=== PATIENT | male | born 1965 | race Caucasian/White ===

== ENCOUNTER 2023-07-10 11:53 | Emergency (ER) | payer OTHER, SELFPAY ==
--- NOTE | ~2023-07-10 | CT_ITS ---
EXAMINATION: CT abdomen pelvis wo con DATE: 07/10/2023 13:27 INDICATION: Abdominal pain. Right flank pain. TECHNIQUE: Computed tomography (CT) of the abdomen and pelvis was performed without intravenous contr ast. Automated exposure control and iterative reconstruction technique were employed. The dose-length product was 763.03 mGy-cm. COMPARISON: None FINDINGS: Minimal bibasilar atelectasis. A couple small fat-containing hernias at the posterior medial aspect o f the left hemidiaphragm. Heart size is normal. Atherosclerotic coronary artery calcific lesion. No p ericardial or pleural effusion. Liver, gallbladder, spleen, pancreas and bilateral adrenal glands are normal. Bilateral nephrolithiasis including a 4 mm obstructing stone at the right ureterovesicular j unction with mild right hydroureteronephrosis. There are left and additional stones measuring up to 3 mm in the right kidney and 5 stones in left kidney the largest measuring 7 mm in maximal diameter at a lower pole calyx. No left-sided ureteral stones or hydronephrosis. Partially decompressed bladder is unremarkable. Prostatomegaly measuring 4.7 x 3.5 cm. Small fat-containing left and umbilical herni as. There is moderate colonic diverticulosis with a sigmoid predominance. There is no adjacent inflam matory change to suggest diverticulitis. Small bowel and appendix are normal. No free intraperitonea l gas or fluid. No pathologically enlarged abdominal or pelvic lymphadenopathy. Mild lumbar and moder ate mid to lower thoracic spondylosis. There is minimal to mild chronic appearing anterior wedging at multiple vertebral bodies in mid to lower thoracic spine. IMPRESSION: 1. Bilateral nephrolithiasis with obstructing 4 mm stone at the right ureterovesicular junction with mild right hydronephrosis. 2. Moderate sigmoid predominant diverticulosis. 3. Small fat-containing umbilical and left inguinal hernias. Reviewed, dictated and finalized at location A. IMPRESSION: 1. Bilateral nephrolithiasis with obstructing 4 mm stone at the right ureterove sicular junction with mild right hydronephrosis. 2. Moderate sigmoid predominant diverticulosis. 3. Small fat-containing umbilical and left inguinal hernias.
[2023-07-10 11:56] VITALS: BP 149/78; PULSE 87; RESP 16; TEMP 36.5; O2SAT 97
[2023-07-10 12:16] LABS: Basophils Absolute Auto 0.1 K/mm3 (0.0-0.1); Basophils Percent Auto 0.6 % (0.2-1.2); Eosinophils Percent Auto 0.5 % (0-4.4); Hematocrit 45.2 % (42.0-52.0); Immature Granulocyte Absolute 0.04 K/mm3 (0.00-0.031); Immature Granulocyte Percent A 0.5 % (0-0.5); Lymphocytes Absolute Auto 1.31 K/mm3 (0.9-3.2); Lymphocytes Percent Auto 14.9 % (18.3-44.2); Mean Corpuscular HGB Conc 33.2 g/dl (32-36); Mean Corpuscular Volume 90.4 fl (80-100); Mean Platelet Volume 8.6 fl (7.4-10.4); Monocytes Absolute Auto 0.9 K/mm3 (0.1-0.6); Monocytes Percent Auto 10.7 % (2.6-8.5); Neutrophils Absolute Auto 6.4 K/mm3 (1.3-6.7); Neutrophils Percent Auto 72.8 % (45.5-73.1); Platelet Count Result 253 k/mm3 (150-375); Red Cell Distribution Width 12.3 % (11.5-14.5); White Blood Count 8.8 K/mm3 (4.5-10.0)
[2023-07-10 12:19] LABS: Appearance Urine Clear (Clear); Bacteria Urine None Seen /hpf; Bilirubin Urine Negative (Negative); Blood Urine Trace (Negative); Color Urine Yellow (Yellow); Glucose Urine UA Negative (Negative); Ketones Urine Negative (Negative); Leukocyte Esterase Ur 1+ LEU/UL (Negative); Nitrate Urine Negative (Negative); Non Pathogenic Casts 0-2; Protein Urine Trace mg/dL (Negative); RBC Urine 0-2 /hpf (0-2); Specific Grav Ur 1.026 (1.001-1.035); Squamous Epithelial Cell Urine None seen /hpf (Few); Urobilinogen Urine 0.2 mg/dL (<2.0); WBC Urine 21-50 /hpf; pH Urine 5.5 (5.0-9.0)
[2023-07-10 12:20] LABS: Add Urine Microscopic? YES
[2023-07-10 12:28] LABS: Alanine Aminotransferase 39 U/L (6-50); Albumin Level 4.2 g/dL (3.5-5.1); Alkaline Phosphatase 68 U/L (38-126); Anion Gap 5 mmol/L (8-16); Aspartate Amino Transferase 199 U/L (17-59); Bilirubin,Total 0.7 mg/dL (0.2-1.3); Blood Urea Nitrogen 25 mg/dL (9-20); Carbon Dioxide 27 mmol/L (22-30); Chloride 105 mmol/L (98-107); Estimated CRCL calculation 29 ml/min; Estimated Glomerular Filt Rate 29; Glucose 93 mg/dL (65-110); Potassium 4.4 mmol/L (3.4-5.0); Sodium 137 mmol/L (137-145)
--- NOTE | 2023-07-10 12:56 | ED.GENADULT ---
HPI - General Adult General Chief complaint: Urogenital-Male Stated complaint: right flank pain/umbilical pain Time Seen by Provider: 07/10/23 15:32 History of Present Illness HPI narrative: Eliel Pat is a 57 y/o male who presents with reports of having increased mid abdominal pain where his umbilical hernia is for about 2 weeks and his abdomen feels to be pretruding. He also reports that he has right flank pain that moves around to his right lower abdomen and feels more pressure when he urinates. Denies fevers/ chills/ Related Data Allergies Allergy/AdvReac Type Severity Reaction Status Date / Time No Known Allergies Allergy Verified 07/10/23 15:34 [facility] Past Medical History Medical History (Updated 07/11/23 @ 00:01 by Randy Marino) No significant past medical history Surgical History Surgical History (Updated 07/10/23 @ 20:19 by Keyur Husain MD) No significant past surgical history Social History Social History (Updated 07/10/23 @ 20:20 by Keyur Husain MD) Smoking status: Never smoker Alcohol intake: current Substance use: never Course Vital Signs Vital signs: Vital Signs Temperature 36.5 C 07/10/23 11:56 Pulse Rate 87 07/10/23 11:56 Respiratory Rate 16 07/10/23 11:56 Blood Pressure 149/78 H 07/10/23 11:56 Pulse Oximetry 97 07/10/23 11:56 Oxygen Delivery Room Air 07/10/23 11:56 Temperature 36.5 C 07/10/23 11:56 Pulse Rate 73 07/10/23 18:54 Respiratory Rate 18 07/10/23 18:54 Blood Pressure 141/98 H 07/10/23 18:54 Pulse Oximetry 97 07/10/23 18:54 Oxygen Delivery Room Air 07/10/23 15:17 Medical Decision Making Vital Signs Vital Signs: Vital Signs Temperature 36.5 C 07/10/23 11:56 Pulse Rate 87 07/10/23 11:56 Respiratory Rate 16 07/10/23 11:56 Blood Pressure 149/78 H 07/10/23 11:56 Pulse Oximetry 97 07/10/23 11:56 Oxygen Delivery Room Air 07/10/23 11:56 Temperature 36.5 C 07/10/23 11:56 Pulse Rate 73 07/10/23 18:54 Respiratory Rate 18 07/10/23 18:54 Blood Pressure 141/98 H 07/10/23 18:54 Pulse Oximetry 97 07/10/23 18:54 Oxygen Delivery Room Air 07/10/23 15:17 Lab Data 07/10/23 12:09 07/10/23 18:06 Labs: Lab Results 07/10/23 07/10/23 Range/Units 12:09 18:06 WBC 8.8 (4.5-10.0) K/mm3 RBC 5.00 (4.6-6.20) M/mm3 Hgb 15.0 (14.0-18.0) g/dL Hct 45.2 (42.0-52.0) % MCV 90.4 (80-100) fl MCH 30.0 (26-34) pg MCHC 33.2 (32-36) g/dl RDW 12.3 (11.5-14.5) % Plt Count 253 (150-375) k/mm3 MPV 8.6 (7.4-10.4) fl Immature Gran % (Auto) 0.5 (0-0.5) % Neut % (Auto) 72.8 (45.5-73.1) % Lymph % (Auto) 14.9 L (18.3-44.2) % George % (Auto) 10.7 H (2.6-8.5) % Eos % (Auto) 0.5 (0-4.4) % Baso % (Auto) 0.6 (0.2-1.2) % Lymph # (Auto) 1.31 (0.9-3.2) K/mm3 George # (Auto) 0.9 H (0.1-0.6) K/mm3 Eos # (Auto) 0.0 (0-0.3) K/mm3 Baso # (Auto) 0.1 (0.0-0.1) K/mm3 Abs Immat Gran (auto) 0.04 H (0.00-0.031) K/mm3 Absolute Neuts (auto) 6.4 (1.3-6.7) K/mm3 Absolute Nucleated RBC 0.0 (0.0-0.012) K/mm3 Nucleated RBC % 0.0 (0.0-0.2) % Sodium 137 137 (137-145) mmol/L Potassium 4.4 4.3 (3.4-5.0) mmol/L Chloride 105 108 H (98-107) mmol/L Carbon Dioxide 27 26 (22-30) mmol/L Anion Gap 5 L 3 L (8-16) mmol/L BUN 25 H 22 H (9-20) mg/dL Creatinine 2.30 H 2.20 H (0.7-1.3) mg/dL Estim Creat Clear Calc 29 30 ml/min Estimated GFR 29 L 31 L (59 - ) Glucose 93 84 (65-110) mg/dL Calcium 9.0 8.5 (8.4-10.2) mg/dL Total Bilirubin 0.7 (0.2-1.3) mg/dL AST 199 H (17-59) U/L ALT 39 (6-50) U/L Alkaline Phosphatase 68 (38-126) U/L Total Protein 8.0 (6.3-8.2) g/dL Albumin 4.2 (3.5-5.1) g/dL Urine Color Yellow (Yellow) Urine Appearance Clear (Clear) Urine pH 5.5 (5.0-9.0) Ur Specific [place] 1.026 (1.001-1.035) Urine Prote
[2023-07-10 15:17] VITALS: BP 134/84; PULSE 72; RESP 18; O2SAT 98
[2023-07-10] MEDS: SODIUM CHLORIDE 0.9% IV 1,000 ML 999 ML IV CONT (16:25)
[2023-07-10 18:23] LABS: Anion Gap 3 mmol/L (8-16); Blood Urea Nitrogen 22 mg/dL (9-20); Calcium 8.5 mg/dL (8.4-10.2); Carbon Dioxide 26 mmol/L (22-30); Chloride 108 mmol/L (98-107); Estimated CRCL calculation 30 ml/min; Estimated Glomerular Filt Rate 31; Glucose 84 mg/dL (65-110); Potassium 4.3 mmol/L (3.4-5.0); Sodium 137 mmol/L (137-145)
--- NOTE | 2023-07-10 18:42 | ED.MALEGU ---
HPI - Male Genitourinary General Chief complaint: Urogenital-Male <Keyur Husain MD - Last Filed: 07/10/23 20:27> Stated complaint: right flank pain/umbilical pain <Keyur Husain MD - Last Filed: 07/10/23 20:27> Time Seen by Provider: 07/10/23 15:32 <Keyur Husain MD - Last Filed: 07/10/23 20:27> History of Present Illness HPI Narrative: Eliel Pat is a 57 y/o male who presents with reports of having increased mid abdominal pain where his umbilical hernia is for about 2 weeks and his abdomen feels to be pretruding. He also reports that he has right flank pain that moves around to his right lower abdomen and feels more pressure when he urinates. Denies fevers/ chills/ <Keyur Husain MD - Last Filed: 07/10/23 20:27> Related Data Allergies/Adverse reactions: Allergies Allergy/AdvReac Type Severity Reaction Status Date / Time No Known Allergies Allergy Verified 07/10/23 15:34 <Keyur Husain MD - Last Filed: 07/10/23 20:27> Review of Systems Review of Systems: CONSTITUTIONAL: Denies fever, chills, or sweats. CARDIOVASCULAR: Denies chest pain, palpitations, or edema. RESPIRATORY: Denies cough or dyspnea. GASTROINTESTINAL: Right flank pain Denies abdominal pain, nausea, vomiting, or diarrhea. GENITOURINARY: Denies dysuria or hematuria. SKIN: Denies rash or itching. MUSCULOSKELETAL: Denies back pain, joint pain, or myalgia. NEUROLOGIC: Denies headache, numbness, dizziness, or weakness. PSYCHIATRIC: Denies anxiety or depression. <Keyur Husain MD - Last Filed: 07/10/23 20:27> PMFSH Past Medical History Medical History: Medical History (Updated 07/10/23 @ 20:19 by Keyur Husain MD) No significant past medical history <Keyur Husain MD - Last Filed: 07/10/23 20:27> Surgical History Surgical History: Surgical History (Updated 07/10/23 @ 20:19 by Keyur Husain MD) No significant past surgical history <Keyur Husain MD - Last Filed: 07/10/23 20:27> Social History Social History: Social History (Updated 07/10/23 @ 20:20 by Keyur Husain MD) Smoking status: Never smoker Alcohol intake: current Substance use: never <Keyur Husain MD - Last Filed: 07/10/23 20:27> Exam Narrative: GENERAL: Well-developed, well-nourished, and in no acute distress. HEAD: Normocephalic, atraumatic. EYES: PERRLA and EOMI. CHEST: Clear to auscultation.? No respiratory distress.? No wheezes rales or rhonchi HEART: Regular rate and rhythm.? No murmur heard.? Normal peripheral pulses. ABDOMEN: Soft, nontender, nondistended, normal active bowel sounds.? No CVA tenderness EXTREMITIES: Normal range of motion.? No edema. SKIN: No noted ecchymosis, induration or erythema of the groin.? Skin otherwise warm, dry, no rash. NEURO:? Alert and oriented x3. Moving all 4 limbs purposefully. PSYCH: Normal mood and affect. <Keyur Husain MD - Last Filed: 07/10/23 20:27> Course Course Emergency Course: 16:13 - Care assumed by me after MSE. The patient's creatinine is elevated at 2.3 with an unknown baseline, though the patient recalls previously being told he suffered kidney injury. CT demonstrates a 4mm stone at the UVJ with right side hydronephrosis. I discussed management options including admission with Urology evaluation and possible stenting vs IV hydration, repeat chemistries and reassessment. The patient elects the latter. 18:40 - Repeat creatinine not significantly changed (2.2). I had a shared decision making conversation with the patient. We discussed risks vs benefits of admission for IV fluids and Urology consultation vs oral hydration and close outpatient follow up. The patient prefers to follow up with his Urologist. Discussed return and emergency precautions including signs/symptoms of acute abdomen. The patient voiced understanding and is comfortable with the plan. All questions answered to his satisfact
[2023-07-10] MEDS: oxyCODONE/ACETAMINOPHEN (*CRX) 5-325 MG TABLET 1 TABLET PO (18:52)
[2023-07-10] MEDS: TAMSULOSIN HCL 0.4 MG CAPSULE PO (18:52)
[2023-07-10 18:54] VITALS: BP 141/98; PULSE 73; RESP 18; O2SAT 97
== END 2023-07-10 19:12 | disposition home or self-care (01) ==
PROVIDERS: Emergency Provider Preventive Medicine Aerospace Medicine
DX: N13.2 Hydronephrosis with renal and ureteral calculous obstruction (principal)
CPT/HCPCS: 36415; 74176; 80048; 80053; 81001; 85025; 87086; 87088; 96360; 99284; A9270; J7030

== ENCOUNTER 2024-06-13 07:00 | Outpatient (NON) | payer OTHER, SELFPAY | END 2024-06-13 07:01 | disposition home or self-care (01) | LOC: ANHLAB 06-14 10:08 | PROVIDERS: PCP Nurse Practitioner Family; Visit Provider Internal Medicine Gastroenterology | DX: D12.5 Benign neoplasm of sigmoid colon (principal); Z12.11 Encounter for screening for malignant neoplasm of colon | CPT/HCPCS: 88305 ==

== ENCOUNTER 2024-06-13 11:20 | Day surgery (SDC) | payer OTHER, SELFPAY ==
[2024-06-04 08:14] VITALS: BMI 30.8
--- NOTE | 2024-06-13 06:58 | P.PNAN_ITS ---
Anes - Initial Pre Proc Eval Procedure: Operation Date: 06/13/24 13:00 Proposed Procedures p Screening Colonoscopy - Sp Sanders MD Date/Time: 06/13/24 06:58 Surgeon: Sp Sanders MD Pre Op Diagnosis: Neoplasm Screening Patient Data Age: 58 Gender: M Height: 1.65 m Weight: 82 kg Allergies Allergy/AdvReac Type Severity Reaction Status Date / Time No Known Allergies Allergy Verified 06/13/24 12:13 Home Medications Medication Instructions Recorded Confirmed Type dextroamphetamine-amphetamine 20 20 mg PO BID #60 tabs 04/15/24 06/13/24 Rx mg tablet (Adderall) sertraline 50 mg tablet 50 mg PO DAILY #90 tabs 05/30/24 06/13/24 Rx lorazepam 0.5 mg tablet 0.5 mg PO DAILY PRN anxiety #30 05/31/24 06/13/24 Rx tabs atorvastatin 20 mg tablet 20 mg PO QHS #90 tabs 06/04/24 06/13/24 Rx hydroxyzine HCl 1 tab-cap PO DIRECTED 06/13/24 06/13/24 History Patient hx anesthesia problems: none Family hx anesthesia problems: none Results Review: All pre-operative results and documents have been reviewed as part of the pre- operative evaluation. [facility] Past Medical History Medical History (Updated 06/13/24 @ 06:59 by Feliberto Reyna DO) ADHD Anxiety Hyperlipidemia Surgical History Surgical History No significant past surgical history Family History Family History Father Coronary artery disease Social History Social History (Updated 12/12/23 @ 09:37 by Serenity Cleaning APRN) Smoking packs per day: 0.5 Smoking cigarettes per day: 10.0 Smoking status: Current every day smoker Tobacco type: cigarettes Alcohol intake: current Substance use: never Substance use type: does not use Living arrangements: with family Anes - Eval Final PreProcedure Day of Procedure 06/13/24 06:58 Patient weight: overweight Heart: regular rate and rhythm Lungs: clear to auscultation Airway: Mallampati scale class II Neurological: alert and oriented Last oral intake: >/= 8 hours ASA classification: II Emergent: no Anesthetic plan: proceed Anesthesia type and monitoring: general GIVS and standard monitoring Results Review: All pre-operative results and documents have been reviewed as part of the pre- operative evaluation. Informed Consent: The patient's anesthetic plan and its attendant risks and benefits were discussed with the patient/family/POA. Questions were solicited and answers provided to the satisfaction of the patient/family/POA.
[2024-06-13 12:18] VITALS: BP 133/87; PULSE 102; RESP 18; TEMP 36.1; O2SAT 97
[2024-06-13] MEDS: LACTATED RINGERS 1,000 ML 150 ML IV CONT (12:45)
--- NOTE | 2024-06-13 12:54 | PM.HPGS ---
History of Present Illness History of Present Illness Consent: Risks, benefits, and alternatives have been discussed and questions answered. Patient agrees to proceed with procedure. Chief complaint: Neoplasm Screening Narrative: Eliel Pat is a 58 year old male presents for screening colonoscopy. Patient's current S are normal. Patient denies abdominal pain. Has had no bleeding. Family history is noncontributory. Review of Systems Review of Systems: All systems reviewed & are unremarkable except as noted in HPI and below PMFSH Past Medical History Medical History (Updated 06/13/24 @ 06:59 by Feliberto Reyna, ) ADHD Anxiety Hyperlipidemia Surgical History Surgical History No significant past surgical history Family History Family History Father Coronary artery disease Social History Social History (Updated 12/12/23 @ 09:37 by Serenity Cleaning APRN) Smoking packs per day: 0.5 Smoking cigarettes per day: 10.0 Smoking status: Current every day smoker Tobacco type: cigarettes Alcohol intake: current Substance use: never Substance use type: does not use Living arrangements: with family Meds Home Medications and Allergies Home Medications Medication Instructions Recorded Confirmed Type dextroamphetamine-amphetamine 20 20 mg PO BID #60 tabs 04/15/24 06/13/24 Rx mg tablet (Adderall) sertraline 50 mg tablet 50 mg PO DAILY #90 tabs 05/30/24 06/13/24 Rx lorazepam 0.5 mg tablet 0.5 mg PO DAILY PRN anxiety #30 05/31/24 06/13/24 Rx tabs atorvastatin 20 mg tablet 20 mg PO QHS #90 tabs 06/04/24 06/13/24 Rx hydroxyzine HCl 1 tab-cap PO DIRECTED 06/13/24 06/13/24 History Allergies Allergy/AdvReac Type Severity Reaction Status Date / Time No Known Allergies Allergy Verified 06/13/24 12:13 Vital Signs Vital Signs - 24 hr 06/13/24 12:18 Temperature 97.0 F L Pulse Rate 102 H Respiratory Rate 18 Blood Pressure 133/87 Pulse Oximetry 97 Oxygen Delivery Room Air Exam Narrative: Physical exam reveals patient to be alert. Signs stable. HEENT exam is unremarkable. Patient is anicteric. Lungs are clear to auscultation and percussion. Heart is without murmur or extra sounds. Abdomen bowel sounds are present soft nontender with no organomegaly. Digital external rectal exam normal. Assessment and Plan Assessment and plan (1) Colon cancer screening: Code(s): Z12.11 - Encounter for screening for malignant neoplasm of colon Status: Acute Assessment and Plan: Patient presents today for screening colonoscopy. He appears to be at average risk for colon polyps. Further recommendations may be given after endoscopy.
[2024-06-13 13:25] VITALS: BP 99/70; PULSE 80; RESP 16; O2SAT 96
[2024-06-13 13:35] VITALS: BP 94/64; PULSE 81; RESP 18; O2SAT 96
[2024-06-13 13:45] VITALS: BP 106/70; PULSE 69; RESP 18; O2SAT 98
--- NOTE | 2024-06-13 14:39 | WPDANESPN ---
Anes - Prog Note Post-Op Date/Time: 06/13/24 14:39 Cardiovascular status: normal Respiratory status: normal Airway patency: baseline Mental status: baseline Post-Op hydration status: normal Vital Signs: Last Vital Signs Temp 36.1 C L 06/13/24 12:18 Pulse 69 06/13/24 13:45 Resp 18 06/13/24 13:45 BP 106/70 06/13/24 13:45 Pulse Ox 98 06/13/24 13:45 O2 Del Method Room Air 06/13/24 13:45 Pain Score (VAS): 0 I/O: Intake & Output 06/12/24 06/13/24 06/13/24 23:59 07:59 15:59 Intake Total 600 Balance 600 Post-procedural complaints: none Patient Feedback: Patient satisfied with anesthetic care. Other Findings: Patient vital signs back to baseline. Patient denies nausea and vomiting. Patient's pain under control. Patient OK for discharge.
== END 2024-06-13 13:55 | disposition home or self-care (01) ==
PROVIDERS: PCP Nurse Practitioner Family; Visit Provider Internal Medicine Gastroenterology
PROC: 0DJD8ZZ Inspection of Lower Intestinal Tract, Via Natural or Artificial Opening Endoscopic (ICD-10-PCS; CPT 45378; principal; 2024-06-13 13:00)
DX: Z12.11 Encounter for screening for malignant neoplasm of colon (principal); D12.5 Benign neoplasm of sigmoid colon; K57.30 Diverticulosis of large intestine without perforation or abscess without bleeding; K64.8 Other hemorrhoids
CPT/HCPCS: 45385

== ENCOUNTER 2024-12-19 09:13 | Outpatient (CLI) | payer OTHER, SELFPAY ==
--- OUTSIDE RECORDS SUMMARY | 2024-12-18 10:45 | XMS_ITS ---
Author Organization [facility] Address [address] [place] [address] Phone Care Team Providers Care Hygiene Teacher Name Role Phone Unavailable Unavailable Unavailable Plan of Treatment No Plan of Treatment Recorded Assessments Includes: Assessments for all patient encounters No Assessments Recorded Medical Equipment - Implanted Devices Includes: Current and historical Devices No Medical Equipment Recorded Medications Administered Includes: Administered Medications in patient's chart No Administered Medications Recorded Results Includes: Results from 12/19/2023 through 12/18/2024 No Results Recorded For Specified Dates History of Present Illness History of Present Illness not supported for this document type No History of Present Illness Recorded Social History No Social History Recorded - Smoking Status Unknown Medical History Includes: Medical History in patient's chart No Medical History Recorded Family History Includes: Family History in patient's chart No Family History Recorded Review of Systems Review of Systems not supported for this document type No Review of Systems Recorded Mental Status No Mental Status Recorded Functional Status No Functional Status Recorded Physical Exam Physical Exam not supported for this document type No Physical Exam Recorded Clinical Notes Includes: Signed Clinical Notes starting from 09/30/2022 No Clinical Notes Recorded
--- OUTSIDE RECORDS SUMMARY | 2024-12-18 10:45 | XMS_ITS | Clinical Summary ---
Author Organization [facility] Address [address] [place] [address] Phone Care Team Providers Care Collection Support Specialist Name Role Phone Unavailable Unavailable Unavailable Reason for Visit and Chief Complaint NEW PATIENT VISIT Plan of Treatment No Plan of Treatment Recorded Assessments Includes: Assessments from this encounter No Assessments Recorded Medical Equipment - Implanted Devices Includes: Current Devices No Medical Equipment Recorded Medications Administered Includes: Administered Medications from this encounter No Administered Medications Recorded Results Includes: Results discussed during this encounter No Results Recorded For Specified Dates History of Present Illness Includes: History of Present Illness from this encounter No History of Present Illness Recorded Social History No Social History Recorded - Smoking Status Unknown Medical History Includes: Medical History addressed during this encounter No Medical History Recorded Family History Includes: Family History addressed during this encounter No Family History Recorded Review of Systems Includes: Review of Systems from this encounter No Review of Systems Recorded Mental Status Includes: Mental Status from this encounter No Mental Status Recorded Functional Status Includes: Functional Status from this encounter No Functional Status Recorded Physical Exam Includes: Physical Exam from this encounter No Physical Exam Recorded Clinical Notes Includes: Clinical Notes from this encounter No Clinical Notes Recorded
--- OUTSIDE RECORDS SUMMARY | 2024-12-18 10:45 | XMS_ITS | Clinical Summary ---
Author Organization [facility] Address [address] [place] [address] Phone Care Team Providers Care Legal Billing Analyst Name Role Phone Unavailable Unavailable Unavailable Reason [...]
--- OUTSIDE RECORDS SUMMARY | 2024-12-18 10:45 | XMS_ITS ---
Care Plan - [facility] Created on: December 18, 2024 LISA BRANDON : 1965 Sex: Male Author Organization [facility] Address [address] [place] [address] Phone Care Team Providers Care Compressed Air Pile Driver Operator Name Role Phone Unavailable Unavailable Unavailable
--- NOTE | ~2024-12-19 | NM_ITS ---
EXAMINATION: NM stress w perf spect multi DATE: 12/19/2024 12:13 CDT INDICATION: Chest pain TECHNIQUE: Rest images were obtained following intravenous administration of 11.3 mCi Tc99m tetrofosm in (Myoview). The patient was infused intravenously with Lexiscan (regadenoson). Then, 33.6 mCi Tc99m tetrofosmin (Myoview) was administered intravenously, and stress images were obtained. Data was leilani nstructed into short axis and horizontal and vertical long axis SPECT images. Gated SPECT images were also obtained. COMPARISON: None. FINDINGS: There is no definite reversible or fixed perfusion abnormality to suggest ischemia or infar ction. There is no segmental wall motion abnormality. Left ventricular ejection fraction measures 6 3%. IMPRESSION: 1. No definite ischemia or infarct. 2. Normal left ventricular ejection fraction measuring 63%. Reviewed, dictated and finalized at location A.
--- OUTSIDE RECORDS SUMMARY | 2024-12-19 09:31 | XMS_ITS | Data Portability ---
Author Organization [facility], Main Office Address [address] [place] [address] Care Team Providers Care Learning Developer Name Role Phone NANCY PATTERSON Primary Care Provider NANCY PATTERSON Referring Provider [phone] Assessment No assessment recorded. Plan of Treatment Reminders Order Date Submit Date Provider Last Modified By Organization Details Last Modified Time Details Appointments None record ed. Lab None record ed. Referral None record ed. Procedures None record ed. Surgeries None record ed. Imaging None record ed. Medication Orders None record ed. Patient TargetsNo targets recorded. Patient InstructionsNo instructions recorded. Reason for Referral None Reported. Results Created Date Observation Date Name Description Value Unit Range Abnormal Flag Note LastModifiedBy Organization Detail LastModifiedTime 05/23/20 22 05/23/2022 HEMOG LOBIN A1C HA1C 5.3 % 4.0-6. 0 Diabe tarsha Scree kevin Crite radha: <5.7% Consi stent with absen ce of diabe tarsha 5.7-6 .4% Consi stent with incre ased risk for diabe tarsha (pred iabet es) >OR=6 .5% Consi stent with diabe tarsha REFER ENCE: Diabe tarsha Care 2016, 39(Birch ppl.1 ):s13 -s22 Not Available [facility] (Lab) [address] [place], [address], 05/23/2022 15:10:14 05/23/20 22 05/23/2022 PSA SCREE N PSA medicare screen 0.93 NG/mL 0.00-4 .00 Not Available [facility] (Lab) [address] [place], [address], 05/23/2022 10:35:13 05/23/20 22 05/23/2022 TSH W/REF ROSANGELA FT4 TSH with reflex free T4 1.210 uIU/m L 0.465- 4.680 Not Available [facility] (Lab) [address] [place], [address], 05/23/2022 10:35:11 05/23/20 22 05/23/2022 CBC/C OMPLE TE BLD COUNT W/DIF F white blood cells 5.7 x10'3 /uL 4.2-10 .8 Not Available [facility] (Lab) [address] [place], [address], 05/23/2022 10:03:07 05/23/20 22 05/23/2022 CBC/C OMPLE TE BLD COUNT W/DIF F red blood cells 5.42 x10'6 /uL 4.10-5 .80 Not Available [facility] (Lab) [address] [place], [address], 05/23/2022 10:03:07 05/23/20 22 05/23/2022 CBC/C OMPLE TE BLD COUNT W/DIF F hemoglobin 16.3 g/dL 13.2-1 7.0 Not Available [facility] (Lab) [address] [place], [address], 05/23/2022 10:03:07 05/23/20 22 05/23/2022 CBC/C OMPLE TE BLD COUNT W/DIF F hematocrit 48.2 % 39.3-5 0.0 Not Available [facility] (Lab) [address] [place], [address], 05/23/2022 10:03:07 05/23/20 22 05/23/2022 CBC/C OMPLE TE BLD COUNT W/DIF F mean red cell volume 88.9 fL 80.0-9 7.0 Not Available [facility] (Lab) [address] [place], [address], 05/23/2022 10:03:07 05/23/20 22 05/23/2022 CBC/C OMPLE TE BLD COUNT W/DIF F mean red cell hemoglobin 30.1 pg 27.0-3 3.0 Not Available [facility] (Lab) [address] [place], [address], 05/23/2022 10:03:07 05/23/20 22 05/23/2022 CBC/C OMPLE TE BLD COUNT W/DIF F mean RBC HGB concentratio n 33.8 g/dL 31.0-3 6.0 Not Available [facility] (Lab) [address] [place], [address], 05/23/2022 10:03:07 05/23/20 22 05/23/2022 CBC/C OMPLE TE BLD COUNT W/DIF F red cell distribution width 11.8 % 11.8-1 5.5 Not Available [facility] (Lab) [address] [place], [address], 05/23/2022 10:03:07 05/23/20 22 05/23/2022 CBC/C OMPLE TE BLD COUNT W/DIF F platelets 243 x10'3 /uL 150-40 0 Not Available [facility] (Lab) [address] [place], [address], 05/23/2022 10:03:07 05/23/20 22 05/23/2022 CBC/C OMPLE TE BLD COUNT W/DIF F mean platelet volume 8.5 fL 9.0-12 .4 low Not Available [facility] (Lab) [address] [place], [address], 05/23/2022 10:03:07 05/23/20 22 05/23/2022 CBC/C OMPLE TE BLD COUNT W/DIF F neutrophils 62.2 % 39.0-7 2.0 Not Available [facility] (Lab) [address] [place], [address], 05/23/2022 10:03:07 05/23/20 22 05/23/2022 CBC/C OMPLE TE BLD COUNT W/DIF F lymphocytes 24.9 % 16.0-4 7.0 Not Available [facility] (Lab) [address] [place], [address], 05/23/2022 10:03:07 05/23/20 22 05/23/2022 CBC/C OMPLE TE BLD COUNT W/DIF F monocytes 10.5 % 5.0-12 .0 Not Available [facility] (Lab) [address] [place], [address], 05/23/2022 10:03:07 05/23/20 22 05/23/2022 CBC/C OMPLE TE BLD COUNT W/DIF F eosinophils 1.2 % 1.0-7. 0 Not Available [facility] (Lab) [address] [place], [address], 05/23/2022 10:03:07 05/23/20 22 05/23/2022 CBC/C OMPLE TE BLD COUNT W/DIF F basophils 0.9 % 0.0-2. 0 Not Available [facility] (Lab) [address] [place], [address], 05/23/2022 10:03:07 05/23/20 22 05/23/2022 CBC/C OMPLE TE BLD COUNT W/DIF F immature granulocytes 0.3 % 0.00-0 .50 Not Available [facility] (Lab) [address] [place], [address], 05/23/2022 10:03:07 05/23/20 22 05/23/2022 CBC/C OMPLE TE BLD COUNT W/DIF F neutrophils, absolute count 3.57 x10'3 /uL 1.5-8. 0 Not Available [facility] (Lab) [address] [place], [address], 05/23/2022 10:03:07 05/23/20 22 05/23/2022 CBC/C OMPLE TE BLD COUNT W/DIF F lymphocytes, absolute count 1.43 x10'3 /uL 1.07-3 .43 Not Available [facility] (Lab) [address] [place], [address], 05/23/2022 10:03:07 05/23/20 22 05/23/2022 CBC/C OMPLE TE BLD COUNT W/DIF F monocytes, absolute count 0.60 x10'3 /uL 0.29-0 .99 Not Available [facility] (Lab) [address] [place], [address], 05/23/2022 10:03:07 05/23/20 22 05/23/2022 CBC/C OMPLE TE BLD COUNT W/DIF F eosinophils, absolute count 0.07 x10'3 /uL 0.02-0 .53 Not Available [facility] (Lab) [address] [place], [address], 05/23/2022 10:03:07 05/23/20 22 05/23/2022 CBC/C OMPLE TE BLD COUNT W/DIF F basophils, absolute count 0.05 x10'3 /uL 0.01-0 .08 Not Available [facility] (Lab) [address] [place], [address], 05/23/2022 10:03:07 05/23/20 22 05/23/2022 CBC/C OMPLE TE BLD COUNT W/DIF F immature granulocytes ,absolute 0.02 x10'3 /uL 0.00-0 .05 Not Available [facility] (Lab) [address] [place], [address], 05/23/2022 10:03:07 05/23/20 22 05/23/2022 CBC/C OMPLE TE BLD COUNT W/DIF F nucleated red blood cells 0.0 % -[address] [facility] (Lab) [address] [place], [address], 05/23/2022 10:03:07 05/23/20 22 05/23/2022 CBC/C OMPLE TE BLD COUNT W/DIF F NRBC# 0.00 x10'3 /uL Not Available [facility] (Lab) [address] [place], [address], 05/23/2022 10:03:07 05/23/20 22 05/23/2022 LIPID PANEL cholesterol 160 mg/dL 140-19 9 [facility] COCO NSUS RECOM MENDA TION FOR AMPARO STERO L: ADULT CHILD LOW RISK: <200 <170 BORDE RLINE : <200- 239 ----- HIGH RISK: >240 >200 Not Available [facility] (Lab) [address] [place], [address], 05/23/2022 09:46:19 05/23/2005/23/2022 LIPID PANEL triglyceride s 80 mg/dL 0-150 NIH COCO NSUS REPOR T RECOM MENDA TION FOR TRIGL YCERI GREGORY: ADULT CHILD LOW RISK: <150 ----- BODER LINE: 150-1 99 ----- HIGH RISK: >200 ----- Not Available [facility] (Lab) [address] [place], [address], 05/23/2022 09:46:19 05/23/20 22 05/23/2022 LIPID PANEL HDL cholesterol 51 mg/dL 40- Not Available [facility] (Lab) [address] [place], [address], 05/23/2022 09:46:19 05/23/20 22 05/23/2022 LIPID PANEL LDL cholesterol, calculated 93 mg/dL 0-130 NIH COCO NSUS REPOR T RECOM MENDA TIONS FOR LDL: ADULT CHILD LOW RISK <130 <110 (OPTI MAL LDL) <100 ----- BORDE RLINE : 130-1 59 ----- HIGH RISK: >160 >130 A TRIGL YCERI DE RESUL T >400 INVAL IDATE S THE CALCU LATIO N FOR LDL FRACT IONAT ION - THE LDL RESUL T WILL NOT BE REPOR OK. Not Available [facility] (Lab) [address] [place], [address], 05/23/2022 09:46:19 05/23/20 22 05/23/2022 COMPR EHENS VALERIA METAB OLIC PANEL sodium 139 mmol/ L 137-14 5 Not Available [facility] (Lab) [address] [place], [address], 05/23/2022 09:46:13 05/23/20 22 05/23/2022 COMPR EHENS VALERIA METAB OLIC PANEL potassium 4.8 mmol/ L 3.5-5. 1 Not Available [facility] (Lab) [address] [place], [address], 05/23/2022 09:46:13 05/23/20 22 05/23/2022 COMPR EHENS VALERIA METAB OLIC PANEL chloride 107 mmol/ L 98-107 Not Available [facility] (Lab) [address] [place], [address], 05/23/2022 09:46:13 05/23/20 22 05/23/2022 COMPR EHENS VALERIA METAB OLIC PANEL carbon dioxide 24 mmol/ L 22-30 Not Available [facility] (Lab) [address] [place], [address], 05/23/2022 09:46:13 05/23/20 22 05/23/2022 COMPR EHENS VALERIA METAB OLIC PANEL anion gap 12.8 mmol/ L 14-22 low Not Available [facility] (Lab) [address] [place], [address], 05/23/2022 09:46:13 05/23/20 22 05/23/2022 COMPR EHENS VALERIA METAB OLIC PANEL glucose 103 mg/dL 70-99 high Not Available [facility] (Lab) [address] [place], [address], 05/23/2022 09:46:13 05/23/20 22 05/23/2022 COMPR EHENS VALERIA METAB OLIC PANEL BUN 21 mg/dL 8-19 high Not Available [facility] (Lab) [address] [place], [address], 05/23/2022 09:46:13 05/23/20 22 05/23/2022 COMPR EHENS VALERIA METAB OLIC PANEL creatinine 1.21 mg/dL 0.66-1 .25 Not Available [facility] (Lab) [address] [place], [address], 05/23/2022 09:46:13 05/23/2005/23/2022 COMPR EHENS VALERIA METAB OLIC PANEL GFR >60 Refer ence Range : [place] ge GFR Healt hy Adult : >60 mL/mi n/1.7 3 m2 Chron ic Kidne y Disea se: 15-60 mL/mi n/1.7 3 m2 Kidne y Failu re: <15/m L/min /1.73 m2 www.n iddk. nih.g ov The MDRD study equat ion has not been valid ated in child see <18 years of age; pregn ant women ; the elder ly >85 years of age; or in some racia l or ethni c subgr oups, such as Hishi nics. Outsi de the valid ated michael eters , estim ated GFR is less accur ate, requi ring clini crystal judgm ent on a case- by-ca se basis . Clini crystal inter preta tion for other races and ages must be made by the clini alok. The MDRD study equat ion has not been valid ated for the evalu ation of serum creat inine relat ed to nutri louie l statu s or medic ation usage . For perso ns <18 years of age, a pedia tric GFR calcu lator is avail able on the [facility] websi te: https ://ry solis.slim horne/brianna ofess ional s/kdo qi/gf r_cal culat or Not Available [facility] (Lab) [address] [place], [address], 05/23/2022 09:46:13 05/23/2005/23/2022 COMPR EHENS VALERIA METAB OLIC PANEL alkaline phosphatase 75 U/L 38-126 Not Available [facility] (Lab) [address] [place], [address], 05/23/2022 09:46:13 05/23/20 22 05/23/2022 COMPR EHENS VALERIA METAB OLIC PANEL alanine aminotransfe rase 27 U/L 0-[address] [facility] (Lab) [address] [place], [address], 05/23/2022 09:46:13 05/23/20 22 05/23/2022 COMPR EHENS VALERIA METAB OLIC PANEL aspartate aminotransfe rase 33 U/L 15-[address] [facility] (Lab) [address] [place], [address], 05/23/2022 09:46:13 05/23/20 22 05/23/2022 COMPR EHENS VALERIA METAB OLIC PANEL bilirubin, total 0.80 mg/dL 0.20-1 .30 Not Available [facility] (Lab) [address] [place], [address], 05/23/2022 09:46:13 05/23/20 22 05/23/2022 COMPR EHENS VALERIA METAB OLIC PANEL calcium 9.4 mg/dL 8.4-10 .2 Not Available [facility] (Lab) [address] [place], [address], 05/23/2022 09:46:13 05/23/20 22 05/23/2022 COMPR EHENS VALERIA METAB OLIC PANEL total protein 7.1 g/dL 6.3-8. 2 Not Available [facility] (Lab) [address] [place], [address], 05/23/2022 09:46:13 05/23/20 22 05/23/2022 COMPR EHENS VALERIA METAB OLIC PANEL albumin 4.3 g/dL 3.4-5. 0 Not Available [facility] (Lab) [address] [place], [address], 05/23/2022 09:46:13 05/23/20 22 05/23/2022 COMPR EHENS VALERIA METAB OLIC PANEL globulin 2.8 g/dL 2.6-4. 2 Not Available [facility] (Lab) [address] [place], [address], 05/23/2022 09:46:13 05/23/20 22 05/23/2022 COMPR EHENS VALERIA METAB OLIC PANEL A/G ratio 1.5 ratio 1.0-2. 0 Not Available [facility] (Lab) [address] [place], [address], 05/23/2022 09:46:13 07/26/20 22 07/28/2022 VITAM IN B12 vitamin B12 459 pg/mL 200-11 00 normal Not Available [facility] [place] [address] [address] [place], [address], 07/28/2022 14:17:29 07/26/20 22 07/28/2022 C-KOLBY CTIVE PROTE IN C-reactive protein 0.9 mg/L <8.0 normal Not Available [facility] [address] [place], [address], 07/28/2022 14:17:28 07/26/20 22 07/28/2022 RHEUM ATOID FACTO R rheumatoid factor <14 IU/mL <14 normal Not Available [facility] [address] [place], [address], 07/28/2022 14:17:27 07/26/20 22 07/28/2022 ANTIN UCLEA R ANTIB ODIES TITER AND PATTE RN MARCIE titer 1:80 titer high A low level MARCIE titer may be prese nt in pre-c linic al autoi mmune disea ses and elidia l indiv idual s. Refer ence Range <1:40 Negat valeria 1:40- 1:80 Low Antib refugio Level >1:80 [place] Antib refugio Level Not Available [facility] [address] [address], [place], [address], 07/28/2022 14:17:26 07/26/20 22 07/28/2022 ANTIN UCLEA R ANTIB ODIES TITER AND PATTE RN MARCIE pattern nuclea r, dense fine speckl ed abnormal Dense fine speck led patte rn is seen in elidia l indiv idual s and rarel y assoc iated with syste grayson lupus eryth emato sis (SLE) , Sjogr en's syndr ome and syste grayson scler osis. AC-2: Dense Fine Speck led Inter natio nal Conse nsus on MARCIE Patte rns (http s://d oi.or g/10. 1515/ ccl- 2017- 0052) Not Available [facility] [address], [place], [address], 07/28/2022 14:17:26 07/26/20 22 07/28/2022 MARCIE SCREE N, IFA, W/REF L TITER AND PATTE RN MARCIE screen, ifa positi ve negati ve abnormal MARCIE IFA is a first line scree n for detec ting the prese nce of up to appro ximat kat 150 autoa ntibo dies in vario us autoi mmune disea ses. A posit valeria MARCIE IFA resul t is sugge stive of autoi mmune disea se and refle xes to titer and patte rn. Furth er labor atory testi ng may be consi dered if clini bernadette indic ated. For addit ional infor joseph plummer refer to http: //gisselle Ariasia gnost ics.c om/fa q/FAQ 177 (This link is being provi ded for infor marni tinoco/ mary barnes purpo ses only. ) Not Available [facility] [place] [address] [place], [address], 07/28/2022 14:17:25 07/26/20 22 07/28/2022 SED RATE BY MODIF IED WESTE RGREN sed rate by modified westergren 6 mm/h < or = 20 normal Not Available [address] [address] [place], [address], 07/28/2022 14:17:25 07/26/20 22 07/28/2022 URIC ACID uric acid 7.0 mg/dL 4.0-8. 0 normal Thera brenden joya t for gout patie nts: <6.0 mg/dL Not Available [address] [address] [place], [address], 07/28/2022 14:17:23 Result Notes None recorded. Problems Name Problem SNOMED Code Status Onset Date Resolution Date Notes Provider Name and Address Organization Details Recorded Time Impacted cerumen of bilateral ears 5495294814529 108 Active 2021 Not Available [facility] 3 07:30:28 Tobacco user 261986702 Active 2019 Not Available [facility] 3 07:30:28 Acute sinusitis 50948508 Active Not Available [facility] 3 07:30:28 Pain in throat 904923702 Active Not Available [facility] 3 07:30:28 Anti-nucle ar factor detected 312778961 Active 2021 Not Available [facility] 3 07:30:29 Impacted cerumen 97879598 Active Not Available [facility] 3 07:30:29 Undifferen tiated attention deficit disorder 14504085 Active Not Available [facility] 3 07:30:29 Mixed anxiety and depressive disorder 012649571 Active 2021 Not Available [facility] 3 07:30:29 Fluid level behind tympanic membrane Active Not Available [facility] 3 07:30:29 Calculus of kidney and ureter 098128001 Active Not Available [facility] 3 07:30:29 Wax in ear canal 875898361 Active Not Available [facility] 3 07:30:29 Dehydratio n 80002031 Active Not Available [facility] 3 07:30:29 Attention deficit hyperactiv ity disorder, predominan tly inattentiv e type 16390398 Active 2021 Not Available [facility] 3 07:30:29 Depressive disorder 54311104 Active Not Available [facility] 3 07:30:29 Seasonal allergic rhinitis 620533100 Active 2021 Not Available [facility] 3 07:30:30 Sinusitis 95402421 Active 2017 Not Available [facility] 3 07:30:30 Elevated blood-pres sure reading without diagnosis of hypertensi on 346776200 Active 2019 Not Available [facility] 3 07:30:30 Chronic sinusitis 42325098 Active 2021 Not Available [facility] 3 07:30:30 Pharyngiti s 991624389 Active Not Available [facility] 3 07:30:30 Complainin g of erectile dysfunctio n Active 2017 Not Available [facility] 3 07:30:30 Hypogonadi sm 13950571 Active Not Available [facility] 3 07:30:30 Anxiety 55294239 Active Not Available [facility] 3 07:30:30 Cough 80613595 Active Not Available [facility] 3 07:30:31 Upper respirator y infection 14366483 Active Not Available [facility] 3 07:30:31 Hyperlipid emia 28742700 Active Not Available [facility] 3 07:30:31 Narcolepsy 64445677 Active Not Available [facility] 3 07:30:31 Substance abuse 04189591 Active 2021 Not Available [facility] 3 07:30:31 Renal colic 6240054 Active Not Available [facility] 3 07:30:31 Posterior rhinorrhea 40948691 Active Not Available [facility] 3 07:30:32 Closed fracture of phalanx of foot 53442750 Active Not Available [facility] 3 07:30:32 Erectile dysfunctio n 255387710 Active 2021 Not Available [facility] 3 07:30:32 Pain in limb 22383740 Active Not Available [facility] 3 07:30:32 Hyperglyce henrique 35633656 Active 2022 Nancy Patterson, [employer] [address] [facility] [address], [place], [address] , [facility] 3 16:08:20 Problem Notes None recorded. Medical Equipment None Reported. Allergies Allergen ID Allergen Name Allergen Category Reaction Reaction Severity Criticality Documentation Date Start Date Code Code System Note Provider Name and Address Organization Details Recorded Time 27541 house dust allergeni c extract environme nt,medica tion Not available Not available Not available 11/09/2022 71705 9 RxNorm Not Available [facility] 3 07:35:59 Medications Name Sig Start Date Stop Date Status Note LastModified by Organization Details LastModified Time Singulair 10 mg tablet Take 1 tablet every day by oral route in the evening for 30 days. 03/19 completed Not Available Not Available Not Available Propecia 1 mg tablet Take 1 tablet every day by oral route. 2012 active Not Available Not Available Not Avai lable buspirone 5 mg tablet active Not Available Not Available No t Available trazodone 50 mg tablet active Not Available Not Available Not Available ibuprofen 800 mg tablet TAKE ONE TABLET BY MOUTH EVERY 8 HOURS NEEDED FOR PAIN. active Not Available Not Available No t Available alprazolam 1 mg tablet TAKE ONE TABLET 3 TIMES DAILY active Not Available Not Available No t Available Lidocaine Viscous 2 % mucosal solution Take 5 mL every 4-6 hours by oral route as needed for 15 days. 03/04 completed Not Available Not Available Not Available hydrocodone 5 mg-acetamin ophen 325 mg tablet TAKE 1 OR 2 TABLETS BY MOUTH EVERY 4-6 HOURS NEEDED FOR PAIN. MAX 8 PER DAY. 02/25 completed Not Available Not Available Not Available prednisone 20 mg tablet 10/02 completed Not Available Not Available Not Available dextroamphe tamine-amph etamine 10 mg tablet TAKE 1 TABLET BY MOUTH TWICE DAILY 02/25 completed Not Available Not Available Not Available Viagra 50 mg tablet 50 mg PO x1; Max: 100 mg/dose up to 1 dose/day 02/25 completed Not Available Not Available Not Available Zithromax Z-Collin 250 mg tablet Take 2 TABLET EVERY DAY by oral route for 1 day then take 1 daily for 4 days 08/17 completed Not Available Not Available Not Available penicillin V potassium 500 mg tablet TAKE 1 TABLET BY MOUTH FOUR TIMES DAILY FOR 10 DAYS 11/05 completed Not Available Not Available Not Available liothyronin e 5 mcg tablet TAKE 2 TABLETS DAILY 08/17 completed Not Available Not Available Not Available tramadol 50 mg tablet TAKE 1/2 TABLET BY MOUTH EVERY 8 HOURS NEEDED 02/25 completed Not Available Not Available Not Available sildenafil 100 mg tablet TAKE 1 TABLET NEEDED DIRECTED active Not Available Not Available No t Available water for injection, sterile injection solution USE 1ML TO MIX AND INJECT CAVERJECT DIRECTED UP TO 3 TIMES PER WEEK 07/03 completed Not Available Not Available Not Available alprazolam 0.5 mg tablet TAKE 1 TABLET BY MOUTH ONCE A DAY NEEDED TAKE ONE UP TO TWO A DAY NEEDED. MUST LAST 30 DAYS. 12/29 completed Not Available Not Available Not Available amoxicillin 875 mg tablet TAKE 1 TABLET EVERY 12 HOURS FOR 10 DAYS 10/02 completed Not Available Not Available Not Available alprazolam 0.25 mg tablet 01/23 completed Not Available Not Available Not Available lorazepam 0.5 mg tablet 12/21 completed Not Available Not Available Not Available benzonatate 100 mg capsule Take 1 capsule every 4-6 hours by oral route as directed for 15 days. 07/03 completed Not Available Not Available Not Available hydrocodone 7.5 mg-acetamin ophen 325 mg tablet Take 1 tablet every 6 hours by oral route for 5 days. active Not Available Not Available No t Available cephalexin 500 mg capsule 10/02 completed Not Available Not Available Not Available dextroamphe tamine-amph etamine 20 mg tablet Take 1 TABLET tid and 1/2 tablet every day 01/23 completed Not Available Not Available Not Available dextroamphe tamine-amph etamine 15 mg tablet TAKE ONE TABLET DAILY 10/02 completed Not Available Not Available Not Available dextroamphe tamine-amph etamine ER 10 mg 24hr capsule,ext end release 01/23 completed Not Available Not Available Not Available Caverject 40 mcg intracavern osal solution INJECT 1 MICROGRAM WITHIN PENIS THREE TIMES PER WEEK 12/21 completed Not Available Not Available Not Available lorazepam 1 mg tablet Take 1 tablet 3 times a day by oral route. active Not Available Not Available No t Available azelastine 137 mcg (0.1 %) nasal spray [place] 2 sprays twice a day by intranasa l route. 07/26 completed Not Available Not Available Not Available testosteron e cypionate 200 mg/mL intramuscul ar oil 12/21 completed Not Available Not Available Not Available ibuprofen 600 mg tablet TAKE 1 TABLET BY EVERY 6 HOURS NEEDED . TAKE WITH FOOD 10/02 completed Not Available Not Available Not Available methylpredn isolone 4 mg tablets in a dose pack Take as directed on pack. Direction s for Medrol Dosepak: 1st day: 2 tablets before breakfast , 1 tablet after lunch and after supper, and 2 tablets at bedtime. 2nd day: 1 tablet before breakfast . 1 tablet after lunch and after supper, and 2 tablets at bedtime. 3rd day: 1 tablet before breakfast , after lunch, after supper and at bedtime. 4th day: 1 tablet before breakfast , after lunch and at bedtime. 5th day: 1 tablet before breakfast and at bedtime. 6th day: 1 tablet before breakfast active Not Available Not Available No t Available fluticasone propionate 50 mcg/actuati on nasal spray,suspe nsion INHALE 2 SPRAYS IN EACH NOSTRIL ONCE DAILY IN THE MORNING active Not Available Not Available No t Available risperidone 1 mg tablet 12/21 completed Not Available Not Available Not Available dextroamphe tamine-amph etamine 5 mg tablet 12/21 completed Not Available Not Available Not Available amoxicillin 875 mg-potassiu m clavulanate 125 mg tablet Take 1 tablet every 12 hours by oral route for 10 days. active Not Available Not Available No t Available amoxicillin 500 mg-potassiu m clavulanate 125 mg tablet Take 1 tablet every 12 hours by oral route for 7 days. active Not Available Not Available No t Available hydroxyzine pamoate 25 mg capsule active Not Available Not Available N ot Available Sure Comfort Insulin Syringe 1 mL 29 gauge x 1/2 12/21 completed Not Available Not Available Not Available Amphetamine Salt Combo 20 mg tablet Take 1 tablet po three times a day active Not Available Not Available No t Available dextroamphe tamine-amph etamine ER 15 mg 24hr capsule,ext end release TAKE 1 CAPSULE DAILY 10/02 completed Not Available Not Available Not Available escitalopra m 10 mg tablet TAKE 1 TABLET BY MOUTH ONCE A DAY active Not Available Not Available No t Available escitalopra m 20 mg tablet TAKE ONE TABLET DAILY active Not Available Not Available No t Available rosuvastati n 10 mg tablet active Not Available Not Available Not Available Wellbutrin XL 300 mg 24 hr tablet, extended release Take 1 tablet every day by oral route. 2012 active Not Available Not Available Not Avai lable BD SafetyGlide Tuberculin Regular Bevel 1 mL 27 x 1/2 syringe USE DIRECTED TO MIX AND INJECT CAVERJECT DIRECTED UP TO 3 TIMES WEEKLY 08/17 completed Not Available Not Available Not Available ProAir HFA 90 mcg/actuati on aerosol inhaler Inhale 2 puffs every 4 hours by inhalatio n route as directed for 30 days. active Not Available Not Available No t Available Virtussin AC 10 mg-100 mg/5 mL oral liquid TK 10ML PO QHS 08/17 completed Not Available Not Available Not Available Saxenda 3 mg/0.5 mL (18 mg/3 mL) subcutaneou s pen injector 0.6 mg SC qd x1 wk, then incr. dose by 0.6 mg/day qwk to target 3 mg SC qd 07/26 completed Not Available Not Available Not Available ID NOW COVID-19 Test Kit TEST DIRECTED TODAY 02/25 completed Not Available Not Available Not Available Vitals Date Recorded Body mass index (BMI) Body height Body temperature Body weight Provider Name and Address Organization Details Last Updated DateTime 11/05/2021 28.9 kg/m2 167.64 cm 97.5 [degF] 71936.03 g Not Available [facility] [place] 11/09/2022 07:28:08 Date Recorded Body mass index (BMI) Body height Oxygen saturation Oxygen saturation in Arterial blood by Pulse oximetry Heart rate Body temperature Body weight Systolic blood pressure Diastolic blood pressure Provider Name and Address Organization Details Last Updated DateTime 2 32.8 kg/m2 167.64 cm 98 % 98 % 67 /min 98.3 [degF] 34691.2 5 g 118 mm[Hg] 92 mm[Hg] Not Available [facility] 07:28:03 Date Recorded Body mass index (BMI) Body height Oxygen saturation Oxygen saturation in Arterial blood by Pulse oximetry Heart rate Body temperature Body weight Systolic blood pressure Diastolic blood pressure Provider Name and Address Organization Details Last Updated DateTime 2 30.7 kg/m2 167.64 cm 97 % 97 % 79 /min 98.2 [degF] 49646.5 5 g 122 mm[Hg] 80 mm[Hg] Not Available [facility] 07:28:03 Social History Question Answer Notes LastModified by Organizat ion Details LastModified Time Tobacco Smoking Status Current Every Day Smoker Not Available [facility] 11/09/2022 07:26:04 What Is Your Level Of Alcohol Consumption? None [id number] Information not available 11/09/2022 What Is Your Level Of Caffeine Consumption? Moderate [id number] Information not available 11/09/2022 In The 14 Days Before Symptom Onset, Have You Had Close Contact With A Laboratory-confi rmed COVID-19 While That Case Was Ill? No [id number] Information not available 11/09/2022 In The 14 Days Before Symptom Onset, Have You Had Close Contact With A Person Who Is Under Investigation For COVID-19 While That Person Was Ill? No [id number] Information not available 11/09/2022 What Type Of Diet Are You Following? 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 No [id number].[id number] Information not available 11/09/2022 What Is The Fluoride Status Of Your Home? Unknown [id number] Information not available 11/09/2022 Do You Use Insect Repellent Routinely? No [id number].[id number] Information not available 11/09/2022 Where Do You Live? SingleLevelHouse MIGRATION.[id number] Information not available 11/09/2022 Do You Have Any Pets? Yes [id number].84129 [id number] Information not available 11/09/2022 What Is Your Relationship Status? [id number].[id number] Information not available 11/09/2022 Do You Use Your Seat Belt Or Car Seat Routinely? Yes [id number].17104 [id number] Information not available 11/09/2022 Do You Have Smoke And Carbon Monoxide Detectors In Your Home? Yes [id number].[id number] Information not available 11/09/2022 Are You Passively Exposed To Smoke? No MIGRATION.64567 [id number] Information not available 11/09/2022 Are There Any Smokers In Your House? No MIGRATION.32771 17742 Information not available 11/09/2022 How Much Tobacco Do You Smoke? 0.5 PPD MIGRATION.69468 11040 Information not available 11/09/2022 Do You Feel Stressed (tense, Restless, Nervous, Or Anxious, Or Unable To Sleep At Night)? [id number] MIGRATION.88271 93356 Information not available 11/09/2022 Do You Use Sunscreen Routinely? Yes [id number].[id number] Information not available 11/09/2022 Have You Recently Traveled Abroad? No [id number].[id number] [id number] Information not available 11/09/2022 Do You Have Any Dietary Restrictions? No MIGRATION.03955 [id number] Information not available 11/09/2022 Sex: Male Functional Status Question Answer Note LastModified by Organizat ion Details LastModified Time What is your exercise level? None [id number] Information not available 11/09/2022 Mental Status None recorded. Family History Relationship Description Onset Age of this Age Resolved Age Notes LastModified by Organization Details LastModified Time Father No current problems or disability [id number] Not available 11/09/2022 07:26:20 Mother No current problems or disability [id number] Not available 11/09/2022 07:26:20 Medical History Condition Response BLINDNESS N RHEUMATIC FEVER N KIDNEY STONES N BLADDER PROBLEMS N MRSA N OTHER # 1 N POLIO N LUNG DISEASE/DISORDER N HISTORY OF DRUG ABUSE N RADIATION / CHEMOTHERAPY N COPD N Other # 2 N BLOOD DISEASES N SURGERY N EAR OR HEARING PROBLEMS N MUMPS N SHINGLES N FEMALE PROBLEMS / INFECTIONS N BOWEL PROBLEMS N DEPRESSION (INCLUDING POST ) N STROKE/TIA N THYROID DISEASE N ULCERS N BENIGN PROSTATIC HYPERPLASIA N MEASLES N CERVICALGIA N TB SKIN TEST N HYPOTENSION N MYOCARDIAL INFARCTION N PARAPELGIA N OBESITY N GERD/NAUSEA N ANEURYSM N URINARY/BLADDER/KIDNEY PROBLEMS N CORONARY ARTERY DISEASE (CAD) N MENIERE'S DISEASE N ADDICTION CONCERNS N ENDOMETRIOSIS N USE OF BLOOD THINNERS N SKIN PROBLEMS N EMPHYSEMA N GASTROINTESTINAL DISORDER N PARATHYROID DISEASE N MUSCLE,JOINT OR BONE PROBLEMS N GASTROINTESTINAL BLEEDING N BLOOD CLOTS N ASTHMA N CATARACTS N ERECTILE DYSFUNCTION N GI PROBLEMS N CHF N Low Testosterone N NEUROPATHY N INFERTILITY N AIDS/HIV N FRACTURES N CHEMOTHERAPY / RADIATION N VISION/EYE PROBLEMS N LIVER DISEASE N MALE HYPOGONADISM N HYPERTENSION N TOURETTE'S N ANXIETY DISORDER N BLOOD TRANSFUSION N ANEMIA/BLOOD DISORDER N CHRONIC EAR INFECTIONS N BRONCHITIS N TUBERCULOSIS N GLAUCOMA N FOOT PROBLEM N DIVERTICULITIS N SLEEP APNEA N CHICKENPOX N ALLERGIES/HAYFEVER N INFECTIOUS DISEASE N PROSTATE N HEART ARRHYTHMIA N INSOMNIA N HIGH CHOLESTEROL / HYPERLIPIDEMIA N EYE PROBLEMS N HYPERTHYROIDISM N EATING DISORDER N EDEMA N CHRONIC PAIN SYNDROME N HYPOTHYROIDISM N CONSTIPATION N CAROTID BLOCKAGE N BACK / NECK PROBLEMS N HAVE YOU BEEN HOSPITALIZED OR SEEN IN [facility] IN THE PAST YEAR ? N ATHEROSCLEROSIS N BREAST PROBLEMS N DIALYSIS N ECZEMA N HISTORY WITH COMPLICATIONS WITH ANESTHES IA ? N FIBROMYALGIA N OSTEOPOROSIS N ARTHRITIS N NO SIGNIFICANT PAST MEDICAL HISTORY N APPENDICITIS N DIABETES, TYPE N BAD TEETH N ENT N SEASONAL ALLERGIES N HEARTBURN / REFLUX N ADD/ADHD N AUTISM SPECTRUM DISORDER (ASD) N HEPATITIS / LIVER DISEASE N PULMONARY DISEASE N GOUT N SLEEP DISORDER N ALZHEIMER'S DISEASE N PAIN N DEMENTIA N HERPES N SEIZURES/EPILEPSY N HEADACHES/MIGRAINES N VASCULAR DISEASE N PACEMAKER N DIZZINESS N HEART DISEASE/HEART PROBLEMS N KIDNEY DISEASE N SCARLET FEVER N MULTIPLE SCLEROSIS N MENTAL DISORDER/ILLNESS N DEVELOPMENTAL OR BEHAVIORAL DISORDERS N CANCER: SPECIFY N CARDIAC ARRHYTHMIA N PNEUMONIA N ANESTHESIA COMPLICATIONS N ATRIAL FIBRILLATION N Gall Stones N PULMONARY EMBOLISM N AUTOIMMUNE DISEASE N Immunizations Vaccine Type Date Status Note Provider Nam e and Address Organization Details Recorded Time Influenza, split virus, quadrivalent, PF 07/03/2020 completed Not Available [facility] 07:35:45 Past Encounters Encounter ID Performer Location Encounter Start Date Encounter Closed Date Diagnosis/Indication Diagnosis SNOMED-CT Code Diagnosis ICD10 Code Diagnosis Note [id number] [facility] [address] [place] [address] 12/23/2020 00:00:00 12/23/2020 18:05:07 [id number] [facility] [address] [place] [phone] 05/20/2021 00:00:00 05/20/2021 14:48:34 [id number] [facility] [address] [place] [phone] 09/21/2021 00:00:00 09/21/2021 16:09:48 [id number] _PATTEN_M IGRATION_ DEFAULT_1 _1 , 11/05/2021 00:00:00 11/05/2021 09:32:08 [id number] [facility] [place] [address] 12/29/2021 00:00:00 12/29/2021 19:15:05 [id number] [facility] [address] [place] [address] 07/26/2022 00:00:00 07/26/2022 11:13:04 Health Concerns Section Related Observation LastModified by Organization Detai ls LastModified Time None Recorded Concern Status LastModified by Organization Details LastModified Time None Recorded Advance Directives Directive None Recorded Payers None recorded.
--- OUTSIDE RECORDS SUMMARY | 2024-12-19 09:31 | XMS_ITS ---
Author Organization [facility] Address [address] [place] [address] Phone Care Team Providers Care Retail Cashier Name Role Phone Unavailable Unavailable Unavailable Plan of Treatment No Plan of Treatment Recorded Assessments Includes: Assessments for all patient encounters No Assessments Recorded Medical Equipment - Implanted Devices Includes: Current and historical Devices No Medical Equipment Recorded Medications Administered Includes: Administered Medications in patient's chart No Administered Medications Recorded Results Includes: Results from 12/20/2023 through 12/19/2024 No Results Recorded For Specified Dates History [...]
--- OUTSIDE RECORDS SUMMARY | 2024-12-19 09:32 | XMS_ITS | Clinical Summary ---
Author Organization [facility] Address [address] [place] [address] Phone Care Team Providers Care Tie Knitter Helper Name Role Phone Unavailable Unavailable Unavailable Reason [...]
--- OUTSIDE RECORDS SUMMARY | 2024-12-19 09:32 | XMS_ITS ---
Care Plan - [facility] Created on: December 19, 2024 LISA BRANDON : 1965 Sex: Male Author Organization [facility] Address [address] [place] [address] Phone Care Team Providers Care Slabber Name Role Phone Unavailable Unavailable Unavailable
--- OUTSIDE RECORDS SUMMARY | 2024-12-19 09:32 | XMS_ITS | Clinical Summary ---
Author Organization [facility] Address [address] [place] [address] Phone Care Team Providers Care Cissp Name Role Phone Unavailable Unavailable Unavailable Reason [...]
--- NOTE | 2024-12-19 09:48 | EST_ITS ---
Patient Info Name: Eliel Pat Age: 59 years : 1965 Gender: Male Ht: 66 in Wt: 180 lbs BSA: 1.97 m2 HR: 64 bpm BP: 137 / 88 mmHg Exam Date: 12/19/2024 11:15 AM Exam Location: Echo Lab Patient Status: Outpatient Admit Date: 12/19/2024 Staff Ordering Physician: Serenity Cleaning APRN Attending Provider: Serenity Cleaning APRN Exercise Technologist: lise Exercise Physician: Guevara Jenkins DO Exam Type: CA stress test treadmill w NM Study Info Indications R07.9 - Chest pain, unspecified A nuclear stress test was performed. Summary 1. 1. Negative Zachary exercise stress test for ischemic ST changes by ECG criteria. 2. 2. Good functional capacity, achieving 9.8 METs of workload. 3. 3. Hypertensive response to exercise. 4. 4. Appropriate HR response to exercise. 5. 5. Appropriate HR recovery at 1 minute post exercise. 6. 6. Nuclear scan to follow and will be reported separately. Please correlate with it. 7. 7. Patient informed of the above results. Protocol: Zachary Stress ECG Details Stage: REST Duration (min): 5 min : 58 sec Speed (mph): 0.0 Grade (%): 0 HR (bpm): 63 SBP (mmHg): 137 DBP (mmHg): 88 METS: --- Stage: REST Duration (min): 10 min : 56 sec Speed (mph): 0.0 Grade (%): 0 HR (bpm): 76 SBP (mmHg): 137 DBP (mmHg): 88 METS: --- Stage: STAGE 1 Duration (min): 1 min : 0 sec Speed (mph): 1.7 Grade (%): 10 HR (bpm): 129 SBP (mmHg): 137 DBP (mmHg): 88 METS: --- Stage: STAGE 1 Duration (min): 2 min : 0 sec Speed (mph): 1.7 Grade (%): 10 HR (bpm): 121 SBP (mmHg): 137 DBP (mmHg): 88 METS: --- Stage: STAGE 1 Duration (min): 3 min : 0 sec Speed (mph): 1.7 Grade (%): 10 HR (bpm): 92 SBP (mmHg): 142 DBP (mmHg): 99 METS: --- Stage: STAGE 2 Duration (min): 1 min : 0 sec Speed (mph): 2.5 Grade (%): 12 HR (bpm): 109 SBP (mmHg): 142 DBP (mmHg): 99 METS: --- Stage: STAGE 2 Duration (min): 2 min : 0 sec Speed (mph): 2.5 Grade (%): 12 HR (bpm): 108 SBP (mmHg): 130 DBP (mmHg): 36 METS: --- Stage: STAGE 2 Duration (min): 3 min : 0 sec Speed (mph): 2.5 Grade (%): 12 HR (bpm): 128 SBP (mmHg): 130 DBP (mmHg): 36 METS: --- Stage: STAGE 3 Duration (min): 1 min : 0 sec Speed (mph): 3.4 Grade (%): 14 HR (bpm): 148 SBP (mmHg): 206 DBP (mmHg): 108 METS: --- Stage: STAGE 3 Duration (min): 1 min : 31 sec Speed (mph): 3.4 Grade (%): 14 HR (bpm): 128 SBP (mmHg): 206 DBP (mmHg): 108 METS: --- Stage: RECOVERY Duration (min): 0 min : 28 sec Speed (mph): 0.0 Grade (%): 0 HR (bpm): 115 SBP (mmHg): 206 DBP (mmHg): 108 METS: --- Stage: RECOVERY Duration (min): 1 min : 28 sec Speed (mph): 0.0 Grade (%): 0 HR (bpm): 95 SBP (mmHg): 206 DBP (mmHg): 108 METS: --- Stage: RECOVERY Duration (min): 2 min : 28 sec Speed (mph): 0.0 Grade (%): 0 HR (bpm): 95 SBP (mmHg): 206 DBP (mmHg): 108 METS: --- Stage: RECOVERY Duration (min): 3 min : 15 sec Speed (mph): 0.0 Grade (%): 0 HR (bpm): 89 SBP (mmHg): 162 DBP (mmHg): 93 METS: --- Rest HR: 76 bpm Peak HR: 148 bpm Rest Sys BP: 137 mmHg Peak Sys BP: 206 mmHg Max Pred HR: 160 bpm % Max Pred HR: 93 % Target HR: 136 bpm Max RPP: 30,488 bpm*mmHg Hogan Score: -3 BP Response: Patient exhibited a hypertensive response with stress Termination Reason: Reached target heart rate or workload Cardiac Symptoms: Shortness of breath Max ST Seg Deviation: 2 mm Total Time: 7 min : 31 sec Rest Dinero BP: 88 mmHg Peak Dinero BP: 108 mmHg Angina Score: None Total METS: 9.8 Resting ECG Sinus rhythm. Stress ECG No ST changes. Arrhythmias None. Report Signatures
== END 2024-12-19 09:14 | disposition home or self-care (01) ==
PROVIDERS: PCP Nurse Practitioner Family; Visit Provider Nurse Practitioner Family
DX: R07.9 Chest pain, unspecified (principal)
CPT/HCPCS: 78452; 93017; A9502

== ENCOUNTER 2025-07-22 13:00 | Emergency (ER) | payer OTHER, SELFPAY ==
--- OUTSIDE RECORDS SUMMARY | 2001-02-21 09:15 | XMS_ITS | Continuity of Care Document ---
Author Organization [facility] Address [address] [place] [address] [address] [place] [address] Phone Care Team Providers Care Senior Compensation Consultant Name Role Phone Lane Conner Unavailable Unavailable Advance Directives Directive Yes / No Effective Date File Name No Information Encounters Encounter Description Practice Location Reason(s) For Visit Diagnoses Date Provider Providers Copied on Encounter [facility], [address], [place], [place], [id number], [place] tel:[phone] [facility] No Information [address] , [address], [place], [address], [place]. tel:[phone] Family History Family Member Type Diagnosis Age At Onset No Information Payers Payer name Insurance type Covered republican ID Authoriza tion(s) No Information Social History Type Description Quantity Date Captured Comments Sex Male Smoking Status No Information Chief Complaint And Reason For Visit No Information Reason For Referral Reason For Referral No Information History Of Present Illness Encounter Date Complaint History Of Prese nt Illness No Information Functional Status Date Functional Assessmen t No Information Instructions Date Instruction Additional Infor mation No Information Assessments Type Assessment Date No Information Patient Care Teams Name Effective Dates (start - stop) Status Members No Information
--- NOTE | ~2025-07-22 | XR_ITS ---
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 Technique: 2 views obtained. Findings: The lungs are clear, no effusion. No pneumothorax. Heart is normal size. Mediastinal and hilar contours are within normal limits. Bony thorax no acute abnormality. Impression: No acute cardiopulmonary abnormality. Reviewed, dictated and finalized at location P. ET MAKER Impression: No acute cardiopulmonary abnormality.
--- NOTE | 2025-07-22 13:02 | ECG_ITS ---
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
--- OUTSIDE RECORDS SUMMARY | 2025-07-22 13:04 | XMS_ITS | Data Portability ---
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 Plan of Treatment [...] 2016, 39(Birch ppl.1 ):s13 -s22 Not Available [facility] (Lab) [address] [place], [address], 05/23/2022 15:10:14 05/23/20 22 05/23/2022 PSA SCREE N PSA medicare screen 0.93 NG/mL 0.00-4 .00 Not Available [facility] (Lab) [address] [place], [address], 05/23/2022 10:35:13 05/23/20 22 05/23/2022 TSH W/REF ROSANGELA FT4 TSH with reflex free T4 1.210 uIU/m L 0.465- 4.680 Not Available [facility] (Lab) [address] [place], [address], 05/23/2022 10:35:11 05/23/20 22 05/23/2022 CBC/C OMPLE TE BLD COUNT W/DIF F white blood cells 5.7 x10'3 /uL 4.2-10 .8 Not Available [facility] (Lab) [address] [place], [address], 05/23/2022 10:03:07 05/23/20 22 05/23/2022 CBC/C OMPLE TE BLD COUNT W/DIF F red blood cells 5.42 x10'6 /uL 4.10-5 .80 Not Available [facility] (Lab) [address] [place], [address], 05/23/2022 10:03:07 05/23/20 22 05/23/2022 CBC/C OMPLE TE BLD COUNT W/DIF F hemoglobin 16.3 g/dL 13.2-1 7.0 Not Available [facility] (Lab) [address] [place], [address], 05/23/2022 10:03:07 05/23/20 22 05/23/2022 CBC/C OMPLE TE BLD COUNT W/DIF F hematocrit 48.2 % 39.3-5 0.0 Not Available [facility] (Lab) [address] [place], [address], 05/23/2022 10:03:07 05/23/20 22 05/23/2022 CBC/C OMPLE TE BLD COUNT W/DIF F mean red cell volume 88.9 fL 80.0-9 7.0 Not Available [facility] (Lab) [address] [place], [address], 05/23/2022 10:03:07 05/23/20 22 05/23/2022 CBC/C OMPLE TE BLD COUNT W/DIF F mean red cell hemoglobin 30.1 pg 27.0-3 3.0 Not Available [facility] (Lab[facility] [address] [facility] [place], [address], 05/23/2022 10:03:07 05/23/20 22 05/23/2022 CBC/C OMPLE TE BLD COUNT W/DIF F mean RBC HGB concentratio n 33.8 g/dL 31.0-3 6.0 Not Available [facility] (Lab) [address] [place], [address], 05/23/2022 10:03:07 05/23/20 22 05/23/2022 CBC/C OMPLE TE BLD COUNT W/DIF F red cell distribution width 11.8 % 11.8-1 5.5 Not Available [facility] (Lab) [address] [place], [address], 05/23/2022 10:03:07 05/23/20 22 05/23/2022 CBC/C OMPLE TE BLD COUNT W/DIF F platelets 243 x10'3 /uL 150-40 0 Not Available [facility] (Lab) [address] [place], [address], 05/23/2022 10:03:07 05/23/20 22 05/23/2022 CBC/C OMPLE TE BLD COUNT W/DIF F mean platelet volume 8.5 fL 9.0-12 .4 low Not Available [facility] (Lab) [address] [place], [address], 05/23/2022 10:03:07 05/23/20 22 05/23/2022 CBC/C OMPLE TE BLD COUNT W/DIF F neutrophils 62.2 % 39.0-7 2.0 Not Available [facility] (Lab) [address] [place], [address], 05/23/2022 10:03:07 05/23/20 22 05/23/2022 CBC/C OMPLE TE BLD COUNT W/DIF F lymphocytes 24.9 % 16.0-4 7.0 Not Available [facility] (Lab) [address] [place], [address], 05/23/2022 10:03:07 05/23/20 22 05/23/2022 CBC/C OMPLE TE BLD COUNT W/DIF F monocytes 10.5 % 5.0-12 .0 Not Available [facility] (Lab) [address] [place], [address], 05/23/2022 10:03:07 05/23/20 22 05/23/2022 CBC/C OMPLE TE BLD COUNT W/DIF F eosinophils 1.2 % 1.0-7. 0 Not Available [facility] (Lab) [address] [place], [address], 05/23/2022 10:03:07 05/23/20 22 05/23/2022 CBC/C OMPLE TE BLD COUNT W/DIF F basophils 0.9 % 0.0-2. 0 Not Available [facility] (Lab) [address] [place], [address], 05/23/2022 10:03:07 05/23/20 22 05/23/2022 CBC/C OMPLE TE BLD COUNT W/DIF F immature granulocytes 0.3 % 0.00-0 .50 Not Available [facility] (Lab) [address] [place], [address], 05/23/2022 10:03:07 05/23/20 22 05/23/2022 CBC/C OMPLE TE BLD COUNT W/DIF F neutrophils, absolute count 3.57 x10'3 /uL 1.5-8. 0 Not Available [facility] (Lab) [address] [place], [address], 05/23/2022 10:03:07 05/23/20 22 05/23/2022 CBC/C OMPLE TE BLD COUNT W/DIF F lymphocytes, absolute count 1.43 x10'3 /uL 1.07-3 .43 Not Available [facility] (Lab) [address] [place], [address], 05/23/2022 10:03:07 05/23/20 22 05/23/2022 CBC/C OMPLE TE BLD COUNT W/DIF F monocytes, absolute count 0.60 x10'3 /uL 0.29-0 .99 Not Available [facility] (Lab) [address] [place], [address], 05/23/2022 10:03:07 05/23/20 22 05/23/2022 CBC/C OMPLE TE BLD COUNT W/DIF F eosinophils, absolute count 0.07 x10'3 /uL 0.02-0 .53 Not Available [facility] (Lab) [address] [place], [address], 05/23/2022 10:03:07 05/23/20 22 05/23/2022 CBC/C OMPLE TE BLD COUNT W/DIF F basophils, absolute count 0.05 x10'3 /uL 0.01-0 .08 Not Available [facility] (Lab) [address] [place], [address], 05/23/2022 10:03:07 05/23/20 22 05/23/2022 CBC/C OMPLE TE BLD COUNT W/DIF F immature granulocytes ,absolute 0.02 x10'3 /uL 0.00-0 .05 Not Available [facility] (Lab) [address] [place], [address], 05/23/2022 10:03:07 05/23/20 22 05/23/2022 CBC/C OMPLE TE BLD COUNT W/DIF F nucleated red blood cells 0.0 % -0 Not Available [facility] (Lab) [address] [place], [address], 05/23/2022 10:03:07 05/23/20 22 05/23/2022 CBC/C OMPLE TE BLD COUNT W/DIF F NRBC# 0.00 x10'3 /uL Not Available [facility] (Lab) [address] [place], [address], 05/23/2022 10:03:07 05/23/20 22 05/23/2022 LIPID PANEL cholesterol 160 mg/dL 140-19 9 [facility] COCO NSUS RECOM MENDA TION FOR AMPARO STERO L: ADULT CHILD LOW RISK: <200 <170 BORDE RLINE : <200- 239 ----- HIGH RISK: >240 >200 Not Available [facility] (Lab) [address] [place], [address], 05/23/2022 09:46:19 05/23/2005/23/2022 LIPID PANEL triglyceride s 80 mg/dL 0-150 NIH COCO NSUS REPOR T RECOM MENDA TION FOR TRIGL YCERI GREGORY: ADULT CHILD LOW RISK: <150 ----- BODER LINE: 150-1 99 ----- HIGH RISK: >200 ----- Not Available [facility] (Lab) [address] [place], [address], 05/23/2022 09:46:19 05/23/2005/23/2022 LIPID PANEL HDL cholesterol 51 mg/dL 40- Not Available [facility] (Lab) [address] [place], [address], 05/23/2022 09:46:19 05/23/2005/23/2022 LIPID PANEL LDL cholesterol, calculated 93 mg/dL [...] WILL NOT BE REPOR OK. Not Available [facility] (Lab) [address] [place], [address], 05/23/2022 09:46:19 05/23/20 22 05/23/2022 COMPR EHENS VALERIA METAB OLIC PANEL sodium 139 mmol/ L 137-14 5 Not Available [facility] (Lab) [address] [place], [address], 05/23/2022 09:46:13 05/23/20 22 05/23/2022 COMPR EHENS VALERIA METAB OLIC PANEL potassium 4.8 mmol/ L 3.5-5. 1 Not Available [facility] (Lab) [address] [place], [address], 05/23/2022 09:46:13 05/23/20 22 05/23/2022 COMPR EHENS VALERIA METAB OLIC PANEL chloride 107 mmol/ L 98-107 Not Available [facility] (Lab) [address] [place], [address], 05/23/2022 09:46:13 05/23/20 22 05/23/2022 COMPR EHENS VALERIA METAB OLIC PANEL carbon dioxide 24 mmol/ L 22-30 Not Available [facility] (Lab) [address] [place], [address], 05/23/2022 09:46:13 05/23/20 22 05/23/2022 COMPR EHENS VALERIA METAB OLIC PANEL anion gap 12.8 mmol/ L 14-22 low Not Available [facility] (Lab) [address] [place], [address], 05/23/2022 09:46:13 05/23/20 22 05/23/2022 COMPR EHENS VALERIA METAB OLIC PANEL glucose 103 mg/dL 70-99 high Not Available [facility] (Lab) [address] [place], [address], 05/23/2022 09:46:13 05/23/20 22 05/23/2022 COMPR EHENS VALERIA METAB OLIC PANEL BUN 21 mg/dL 8-19 high Not Available [facility] (Lab) [address] [place], [address], 05/23/2022 09:46:13 05/23/20 22 05/23/2022 COMPR EHENS VALERIA METAB OLIC PANEL creatinine 1.21 mg/dL 0.66-1 .25 Not Available [facility] (Lab) [address] [place], [address], 05/23/2022 09:46:13 05/23/20 22 05/23/2022 COMPR EHENS VALERIA METAB OLIC PANEL GFR >60 Refer ence Range : Clio ge GFR Healt hy Adult : >60 [...] or ethni c subgr oups, such as Hispa nics. Outsi de the valid ated michael [...] calcu lator is avail able on the [facility] websi te: https :[email or web address] horne/brianna ofess ional s/kdo qi/gf r_cal culat or Not Available [facility] (Lab) [address] [place], [address], 05/23/2022 09:46:13 05/23/20 22 05/23/2022 COMPR EHENS VALERIA METAB OLIC PANEL alkaline phosphatase 75 U/L 38-126 Not Available [facility] (Lab) [address] [place], [address], 05/23/2022 09:46:13 05/23/20 22 05/23/2022 COMPR EHENS VALERIA METAB OLIC PANEL alanine aminotransfe rase 27 U/L 0-50 Not Available [facility] (Lab) [address] [place], [address], 05/23/2022 09:46:13 05/23/20 22 05/23/2022 COMPR EHENS VALERIA METAB OLIC PANEL aspartate aminotransfe rase 33 U/L 15-46 Not Available [facility] (Lab) [address] [place], [address], 05/23/2022 09:46:13 05/23/2005/23/2022 COMPR EHENS VALERIA METAB OLIC PANEL bilirubin, total 0.80 mg/dL 0.20-1 .30 Not Available [facility] (Lab) [address] [place], [address], 05/23/2022 09:46:13 05/23/20 22 05/23/2022 COMPR EHENS VALERIA METAB OLIC PANEL calcium 9.4 mg/dL 8.4-10 .2 Not Available [facility] (Lab) [address] [place], [address], 05/23/2022 09:46:13 05/23/20 22 05/23/2022 COMPR EHENS VALERIA METAB OLIC PANEL total protein 7.1 g/dL 6.3-8. 2 Not Available [facility] (Lab) [address] [place], [address], 05/23/2022 09:46:13 05/23/20 22 05/23/2022 COMPR EHENS VALERIA METAB OLIC PANEL albumin 4.3 g/dL 3.4-5. 0 Not Available [facility] (Lab) [address] [place], [address], 05/23/2022 09:46:13 05/23/20 22 05/23/2022 COMPR EHENS VALERIA METAB OLIC PANEL globulin 2.8 g/dL 2.6-4. 2 Not Available [facility] (Lab) [address] [place], [address], 05/23/2022 09:46:13 05/23/20 22 05/23/2022 COMPR EHENS VALERIA METAB OLIC PANEL A/G ratio 1.5 ratio 1.0-2. 0 Not Available [facility] (Lab) [address] [place], [address], 05/23/2022 09:46:13 07/26/20 22 07/28/2022 VITAM IN B12 vitamin B12 459 pg/mL 200-11 00 normal Not Available [facility] [address] [place], [address], 07/28/2022 14:17:29 07/26/20 22 07/28/2022 C-KOLBY CTIVE PROTE IN C-reactive protein 0.9 mg/L <8.0 normal Not Available [facility] [address] [place], [address], 07/28/2022 14:17:28 07/26/20 22 07/28/2022 RHEUM ATOID FACTO R rheumatoid factor <14 IU/mL <14 normal Not Available [facility] [address] [place], [address], 07/28/2022 14:17:27 07/26/20 22 07/28/2022 ANTIN UCLEA R ANTIB ODIES TITER AND PATTE RN MARCIE titer 1:80 titer high A low level MARCIE titer may be prese nt in pre-c linic al autoi mmune disea ses and elidia l indiv idual s. Refer ence Range <1:40 Negat valeria 1:40- 1:80 Low Antib refugio Level >1:80 [place] ok Antib refugio Level Not Available [facility] [address], [place], [address], 07/28/2022 14:17:26 07/26/20 22 07/28/2022 ANTIN UCLEA [...] g/10. 1515/ ccl- 2017- 0052) Not Available [facility] [address], [place], [address], 07/28/2022 14:17:26 07/26/20 22 07/28/2022 MARCIE SCREE [...] barnes purpo ses only. ) Not Available [facility] [address] [place], [address], 07/28/2022 14:17:25 07/26/20 22 07/28/2022 SED RATE BY MODIF IED WESTE RGREN sed rate by modified westergren 6 mm/h < or = 20 normal Not Available [facility] [address], [place], [address], 07/28/2022 14:17:25 07/26/20 22 07/28/2022 URIC ACID uric acid 7.0 mg/dL 4.0-8. 0 normal Thera brenden joya t for gout patie nts: <6.0 mg/dL Not Available [facility] [address], [place], [address], 07/28/2022 14:17:23 Result Notes None recorded. Problems Name Problem SNOMED Code Status Onset Date Resolution Date Notes Provider Name and Address Organization Details Recorded Time Acute sinusitis 54561174 Active Not Available [facility] 3 07:30:28 Pain in throat 790772208 Active Not Available [facility] 3 07:30:28 Impacted cerumen 43582029 Active Not Available [facility] 3 07:30:29 Undifferen tiated attention deficit disorder 91393336 Active Not Available [facility] 3 07:30:29 Fluid level behind tympanic membrane Active Not Available [facility] 3 07:30:29 Calculus of kidney and ureter 989540886 Active Not Available [facility] 3 07:30:29 Wax in ear canal 358402099 Active Not Available [facility] 3 07:30:29 Dehydratio n 13132744 Active Not Available [facility] 3 07:30:29 Depressive disorder 24451095 Active Not Available [facility] 3 07:30:29 Pharyngiti s 258928673 Active Not Available [facility] 3 07:30:30 Hypogonadi sm 53210426 Active Not Available [facility] 3 07:30:30 Anxiety 04281020 Active Not Available [facility] 3 07:30:30 Cough 30938053 Active Not Available [facility] 3 07:30:31 Upper respirator y infection 65460669 Active Not Available [facility] 3 07:30:31 Hyperlipid emia 68419525 Active Not Available [facility] 3 07:30:31 Narcolepsy 58904071 Active Not Available [facility] 3 07:30:31 Renal colic 4678655 Active Not Available [facility] 3 07:30:31 Posterior rhinorrhea 24149590 Active Not Available [facility] 3 07:30:32 Closed fracture of phalanx of foot 71152564 Active Not Available [facility] 3 07:30:32 Pain in limb 93538911 Active Not Available [facility] 3 07:30:32 Sinusitis 03098490 Active 2017 Not Available [facility] 3 07:30:30 Complainin g of erectile dysfunctio n Active 2017 Not Available [facility] 3 07:30:30 Elevated blood-pres sure reading without diagnosis of hypertensi on 112931035 Active 2019 Not Available [facility] 3 07:30:30 Tobacco user 534548644 Active 2019 Not Available [facility] 3 07:30:28 Seasonal allergic rhinitis 238160116 Active 2021 Not Available [facility] 3 07:30:30 Erectile dysfunctio n 112219383 Active 2021 Not Available [facility] 3 07:30:32 Chronic sinusitis 07264168 Active 2021 Not Available [facility] 3 07:30:30 Impacted cerumen of bilateral ears 4873732305210 108 Active 2021 Not Available [facility] 3 07:30:28 Mixed anxiety and depressive disorder 202314763 Active 2021 Not Available [facility] 3 07:30:29 Attention deficit hyperactiv ity disorder, predominan tly inattentiv e type 31168493 Active 2021 Not Available [facility] 3 07:30:29 Substance abuse 48448062 Active 2021 Not Available [facility] 3 07:30:31 Anti-nucle ar factor detected 431677591 Active 2021 Not Available [facility] 3 07:30:29 Hyperglyce henrique 97134602 Active 2022 Nancy Patterson, [facility] [address], [place], [address] , [facility] [employer] 3 16:08:20 Problem Notes None recorded. Medical Equipment None Reported. Allergies Allergen ID Allergen Name Allergen Category Reaction Reaction Severity Criticality Documentation Date Start Date Code Code System Note Provider Name and Address Organization Details Recorded Time 77203 house dust allergeni c extract environme nt,medica tion Not available Not available Not available 11/09/2022 32538 9 RxNorm Not Available [facility] 3 07:35:59 Medications Name Sig Start Date [...] azelastine 137 mcg (0.1 %) nasal spray [place] 2 sprays twice a day by intranasa [...] 11/05/2021 28.9 kg/m2 167.64 cm 97.5 [degF] 65180.03 g Not Available [facility] 11/09/2022 07:28:08 Date Recorded Body mass index (BMI) Body height Oxygen saturation Oxygen saturation in Arterial blood by Pulse oximetry Heart rate Body temperature Body weight Systolic And Diastolic Provider Name and Address Organization Details Last Updated DateTime 2 32.8 kg/m2 167.64 cm 98 % 98 % 67 /min 98.3 [degF] 64369.2 5 g 118/92 mm[Hg] Not Available [facility] 3 07:28:03 Date Recorded Body mass index (BMI) Body height Oxygen saturation Oxygen saturation in Arterial blood by Pulse oximetry Heart rate Body temperature Body weight Systolic And Diastolic Provider Name and Address Organization Details Last Updated DateTime 2 30.7 kg/m2 167.64 cm 97 % 97 % 79 /min 98.2 [degF] 21707.5 5 g 122/80 mm[Hg] Not Available [facility] 3 07:28:03 Social History Question Answer Notes LastModified by Organizat ion Details LastModified Time Tobacco Smoking Status Current Every Day Smoker Not Available [facility] 11/09/2022 07:26:04 What Is Your Level Of Caffeine Consumption? Moderate [id number] Information not available 11/09/2022 In The 14 Days Before Symptom Onset, Have You Had Close Contact With A Laboratory-confi rmed COVID-19 While That Case Was Ill? No [id number].67335 [id number] Information not available 11/09/2022 In The 14 Days Before Symptom Onset, Have You Had Close Contact With A Person Who Is Under Investigation For COVID-19 While That Person Was Ill? No MIGRATION.81363 71508 Information not available 11/09/2022 What Type Of Diet Are You Following? REGULAR MIGRATION.54056 86173 Information not available 11/09/2022 Have There Been Any Changes To Your Family Or Social Situation? No MIGRATION.88538 87137 Information not available 11/09/2022 What Is The Fluoride Status Of Your Home? Unknown MIGRATION.30301 16716 Information not available 11/09/2022 Do You Use Insect Repellent Routinely? No MIGRATION.42625 00065 Information not available 11/09/2022 Where Do You Live? [place] MIGRATION.50760 88198 Information not available 11/09/2022 Do You Have Any Pets? Yes MIGRATION.04485 66418 Information not available 11/09/2022 What Is Your Relationship Status? MIGRATION.41286 93670 Information not available 11/09/2022 Do You Use Your Seat Belt Or Car Seat Routinely? Yes MIGRATION.65955 98739 Information not available 11/09/2022 Do You Have Smoke And Carbon Monoxide Detectors In Your Home? Yes MIGRATION.15470 23858 Information not available 11/09/2022 Are You Passively Exposed To Smoke? No MIGRATION.49899 91692 Information not available 11/09/2022 Are There Any Smokers In Your House? No MIGRATION.72858 28074 Information not available 11/09/2022 How Much Tobacco Do You Smoke? 0.5 PPD MIGRATION.37613 03615 Information not available 11/09/2022 Do You Use Sunscreen Routinely? Yes MIGRATION.82664 47250 Information not available 11/09/2022 Have You Recently Traveled Abroad? No MIGRATION.79977 08634 Information not available 11/09/2022 Do You Have Any Dietary Restrictions? No MIGRATION.45422 38411 Information not available 11/09/2022 Sex: Male Functional Status Question Answer Note LastModified by Organizat ion Details LastModified Time What is your level of alcohol consumption? 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 None MIGRATION.[id number] 026 Information not available 11/09/2022 Mental Status Question Answer Note LastModified by Organizat ion Details LastModified Time Do you feel stressed (tense, restless, nervous, or anxious, or unable to sleep at night)? [id number] [id number] Information not available 11/09/2022 Family History Relationship Description Onset Age of this Age Resolved Age Notes LastModified by Organization Details LastModified Time Father No current problems or disability [id number] Not available 11/09/2022 07:26:20 Mother No current problems or disability MIGRATION.992 [id number] Not available 11/09/2022 07:26:20 Medical History Condition Response BLINDNESS N RHEUMATIC FEVER N KIDNEY STONES N BLADDER PROBLEMS N MRSA N OTHER # 1 N POLIO N LUNG DISEASE/DISORDER N HISTORY OF DRUG ABUSE N RADIATION / CHEMOTHERAPY N COPD N Other # 2 N BLOOD DISEASES N SURGERY N EAR OR HEARING PROBLEMS N MUMPS N SHINGLES N BOWEL PROBLEMS N FEMALE PROBLEMS / INFECTIONS N DEPRESSION (INCLUDING POST ) N STROKE/TIA N THYROID DISEASE N ULCERS N BENIGN PROSTATIC HYPERPLASIA N MEASLES N CERVICALGIA N HYPOTENSION N TB SKIN TEST N MYOCARDIAL INFARCTION N PARAPELGIA N OBESITY [...] GLAUCOMA N FOOT PROBLEM N DIVERTICULITIS N CHICKENPOX N SLEEP APNEA N ALLERGIES/HAYFEVER N INFECTIOUS DISEASE N HEART ARRHYTHMIA N PROSTATE N INSOMNIA N HIGH CHOLESTEROL / HYPERLIPIDEMIA N HYPERTHYROIDISM N EYE PROBLEMS N EATING DISORDER N EDEMA N CHRONIC PAIN SYNDROME N HYPOTHYROIDISM N CONSTIPATION N CAROTID BLOCKAGE N BACK / NECK PROBLEMS N HAVE YOU BEEN HOSPITALIZED OR SEEN IN [facility] IN THE PAST YEAR ? N [...] DISORDER N ALZHEIMER'S DISEASE N PAIN N HERPES N DEMENTIA N HEADACHES/MIGRAINES N SEIZURES/EPILEPSY N VASCULAR DISEASE N PACEMAKER N DIZZINESS N HEART DISEASE/HEART PROBLEMS N KIDNEY DISEASE N DEVELOPMENTAL OR BEHAVIORAL DISORDERS N MULTIPLE SCLEROSIS N SCARLET FEVER N MENTAL DISORDER/ILLNESS N CARDIAC ARRHYTHMIA N CANCER: SPECIFY N ANESTHESIA COMPLICATIONS N PNEUMONIA N ATRIAL FIBRILLATION N Gall Stones N PULMONARY EMBOLISM N AUTOIMMUNE DISEASE N Immunizations Vaccine Type Date Status Note Provider Nam e and Address Organization Details Recorded Time Influenza, split virus, quadrivalent, PF 07/03/2020 completed Not Available [facility] 07:35:45 Past Encounters Encounter ID Performer Location Encounter Start Date Encounter Closed Date Diagnosis/Indication Diagnosis SNOMED-CT Code Diagnosis ICD10 Code Diagnosis IMO Codes Diagnosis Note [id number] Salvador Sanchez MD [address] [address] 12/23/2020 00:00:00 12/23/2020 18:05:07 [id number] Salvador Sanchez MD [address] [address] 05/20/2021 00:00:00 05/20/2021 14:48:34 [id number] Salvador Sanchez MD [address] [address] 09/21/2021 00:00:00 09/21/2021 16:09:48 [id number] Zachery Puente MD _ATHENA_M IGRATION_ DEFAULT_1 _1 , 11/05/2021 00:00:00 11/05/2021 09:32:08 [id number] Salvador Sanchez MD [address] [address] 12/29/2021 00:00:00 12/29/2021 19:15:05 [id number] Salvador Sanchez MD [address] [address] 07/26/2022 00:00:00 07/26/2022 11:13:04 Health Concerns Section Related Observation LastModified by Organization Detai ls LastModified Time None Recorded Concern Status LastModified by Organization Details LastModified Time None Recorded Advance Directives Directive None Recorded Payers Insurance Date Sequence Insurance Name Policy Number Policy Dukes Covered Member ID Dukes Member ID Guarantor Name 01/19/2023 [facility] Eliel Pat SELF SELF Eliel Pat 01/19/2023 [id number] Josue Pat [id number] Eliel Pat
--- OUTSIDE RECORDS SUMMARY | 2025-07-22 13:04 | XMS_ITS | Patient Health Record ---
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 Name Role Phone Pepe Leo Unavailable [phone] Reason For Referral No Information Medications Medication SIG (Take, Route, Frequency, Duration) Notes Start Date End Date Status Testosterone Cypionate 200 MG/ML Solution Intramuscular 05/18/2023 Active hydrOXYzine HCl 10 MG Tablet Oral 05/18/2023 Active Escitalopram Oxalate 20 MG Tablet Oral 05/18/2023 Active Azelastine HCl 137 MCG/SPRAY Solution Nasal 05/18/2023 Active Sildenafil Citrate 100 MG Tablet Oral 05/18/2023 Active busPIRone HCl 5 MG Tablet Oral 05/18/2023 Active Tamsulosin HCl 0.4 MG Capsule Oral 05/18/2023 Active Caverject 40 mcg Solution Reconstituted Intracavernosal 05/18/2023 Active oxyCODONE HCl 5 MG Tablet Oral 05/18/2023 Active Ondansetron 4 MG Tablet Disintegrating Oral 05/18/2023 Active Finasteride 1 MG Tablet Oral 05/18/2023 Active Fluticasone Propionate Diskus 50 MCG/ACT Aerosol Powder Breath Activated Inhalation *Reorder from [employer] for eRx and Interaction Alerts* 05/18/2023 Active Immunizations Vaccine Route Administration Date Status Comme nts Influenza, unspecified formulation Unknown 06/20/2022 A dministered Pfizer Biontech Covid-19 Vac cine 2nd dose Unknown 02/01/2021 Administered Pfizer Biontech Covid-19 Vac cine 2nd dose Unknown 02/22/2021 Administered Pfizer Biontech Covid-19 Vac cine 2nd dose Unknown 10/11/2021 Administered Social History Social History Additional Details Category Social Info Options Details Migrated Social History Migrated Social History Alcohol Intake: Moderate 05/18/2023,Tobacco Years: Former smoker 03/31/2023,Smoking Status: 20 05/18/2023 Plan Of Treatment No Information Insurance Providers Payer Name Payer Address Payer Phone Subscriber Number Group Number Insured Name Patient Relationship to Insured Coverage Start Date Coverage End Date [employer] [address] [place] [id number] LISA BRANDON Self - patient is the insured
[2025-07-22 13:05] VITALS: BP 156/98; PULSE 79; RESP 16; TEMP 36.8; O2SAT 97
[2025-07-22 13:30] LABS: Hematocrit 49.4 % (42.0-52.0); Hemoglobin 17.0 g/dL (14.0-18.0); Immature Granulocyte Percent A 0.4 % (0-0.5); Lymphocytes Absolute Auto 1.25 K/mm3 (0.9-3.2); Mean Corpuscular HGB Conc 34.4 g/dl (32-36); Mean Corpuscular Hemoglobin 30.5 pg (26-34); Mean Corpuscular Volume 88.7 fl (80-100); Nucleated Red Blood Cells Absolute Auto 0.000 K/mm3 (0.0-0.012); Nucleated Red Blood Cells Perc 0.0 % (0.0-0.2); Platelet Count Result 302 k/mm3 (150-375); Red Blood Count 5.57 M/mm3 (4.6-6.20); White Blood Count 11.2 K/mm3 (4.5-10.0)
[2025-07-22 13:44] LABS: Alanine Aminotransferase 24 U/L (6-50); Albumin Level 4.5 g/dL (3.5-5.1); Alkaline Phosphatase 86 U/L (38-126); Anion Gap 7 mmol/L (4-12); Aspartate Amino Transferase 34 U/L (17-59); Bilirubin,Total 0.4 mg/dL (0.2-1.3); Blood Urea Nitrogen 23 mg/dL (9-20); Calcium 9.1 mg/dL (8.4-10.2); Carbon Dioxide 25 mmol/L (22-30); Chloride 102 mmol/L (98-107); Estimated CRCL calculation 52 ml/min; Estimated Glomerular Filt Rate > 60; Glucose 107 mg/dL (65-110); Lipase 204 U/L (23-300); Potassium 4.3 mmol/L (3.4-5.0); Sodium 134 mmol/L (137-145); Total Protein 7.7 g/dL (6.3-8.2)
[2025-07-22 13:49] LABS: INR 1.0; Prothrombin Time 13.0 Seconds (11.1-14.7)
[2025-07-22 13:50] LABS: Partial Thromboplastin Time 26.8 Seconds (22.3-36.8)
[2025-07-22] MEDS: ASPIRIN 81 MG CHEWABLE TABLET 324 MG PO (13:51)
--- NOTE | 2025-07-22 13:53 | PC.NURSE ---
This RN entered the pt room to give aspirin. Pt requesting something for anxiety. No provider signed up for this patient at this time
[2025-07-22 13:54] LABS: Troponin I < 0.012 ng/mL (0.000-0.034)
--- NOTE | 2025-07-22 14:07 | ED_ITS ---
HPI - Chest Pain General Chief Complaint: Chest Pain Stated Complaint: CP Time Seen by Provider: 07/22/25 14:00 History of Present Illness HPI narrative: Pt presents with tightness in anterior chest constantly since about 0300. Described as anterior chest tightness radiating into neck. Pt has Hx of anxiety but has no had issues for some time. Pt has some mild SOB. Pt on meds for cholesterol. Related Data Allergies Allergy/AdvReac Type Severity Reaction Status Date / Time No Known Allergies Allergy Verified 07/22/25 13:17 Review of Systems 2 Review of Systems: All systems reviewed & are unremarkable except as noted in HPI and below PMFSH Past Medical History Medical History Anxiety ADHD Hyperlipidemia Surgical History Surgical History No significant past surgical history Family History Family History Father Coronary artery disease Social History Social History Social History: started smoking around age 34, about 1/2 ppd. Smoking packs per day: 0.5 Smoking cigarettes per day: 10.0 Years smoked: 25 Smoking pack-years: 12.50 Tobacco type: cigarettes Alcohol intake: current Substance use: never Substance use type: does not use Living arrangements: with family Exam 2 Const: General: healthy appearing, no acute distress and alert Nutritional Appearance: well nourished Orientation/consciousness: patient oriented x3 Neck: Neck: normal visual inspection Chest: Chest palpation & inspection: normal inspection of the chest Resp: Effort & Inspection: normal respiratory effort Auscultation: clear to auscultation bilaterally Cardio: Rate: regular rate Rhythm: regular rhythm GI: GI Palp: Yes Soft to palpation and No Tenderness to palpation present (GI) Auscultation: normal bowel sounds Skin: General skin exam: normal color Wounds: no wounds Neuro: General: patient oriented x3, moves all extremities, no meningeal signs, no focal motor deficits and CN's II-XI intact bilaterally Speech: n ormal speech Extrem: General: normal to inspection and no clubbing, cyanosis or edema Psych: Mental Status: mental status grossly normal Affect: normal affect Attitude: cooperative Course Vital Signs Vital signs: Vital Signs Temperature 98.2 F 07/22/25 13:05 Pulse Rate 79 07/22/25 13:05 Respiratory Rate 16 07/22/25 13:05 Blood Pressure 156/98 H 07/22/25 13:05 Pulse Oximetry 97 07/22/25 13:05 Oxygen Delivery Room Air 07/22/25 13:05 Temperature 98.2 F 07/22/25 13:05 Pulse Rate 75 07/22/25 15:24 Respiratory Rate 16 07/22/25 15:24 Blood Pressure 115/70 07/22/25 15:24 Pulse Oximetry 96 07/22/25 15:24 Oxygen Delivery Room Air 07/22/25 13:11 MDM - Chest Pain MDM Narrative Medical decision making narrative: Pt presents with CP since 299 constant. will do cardiac work up and try GI cocktail and a little valium. Pt feels better after meds. will send home on a few ativan. Differential Diagnosis Differential diagnosis: Likely pneumothorax, unstable angina pectoris, atypical chest pain, st elevation myocardial infarction, costochondritis and chest pain Lab Data Attestation: I reviewed the patient's lab results. 07/22/25 13:19 07/22/25 13:19 Labs: Lab Results 07/22/25 Range/Units 13:19 WBC 11.2 H (4.5-10.0) K/mm3 RBC 5.57 (4.6-6.20) M/mm3 Hgb 17.0 (14.0-18.0) g/dL Hct 49.4 (42.0-52.0) % MCV 88.7 (80-100) fl MCH 30.5 (26-34) pg MCHC 34.4 (32-36) g/dl RDW 11.4 L (11.5-14.5) % Plt Count 302 (150-375) k/mm3 MPV 8.6 (7.4-10.4) fl Immature Gran % (Auto) 0.4 (0-0.5) % Neut % (Auto) 81.2 H (45.5-73.1) % Lymph % (Auto) 11.2 L (18.3-44.2) % [place] % (Auto) 6.7 (2.6-8.5) % Eos % (Auto) 0.1 (0-4.4) % Baso % (Auto) 0.4 (0.2-1.2) % Lymph # (Auto) 1.25 (0.9-3.2) K/mm3 [place] # (Auto) 0.8 H (0.1-0.6) K/mm3 Eos # (Auto) 0.0 (0-0.3) K/mm3 Baso # (Auto) 0.0 (0.0-0.1) K/mm3 Abs Immat Gran (auto) 0.05 H (0.00-0.031) K/mm3 Absolute Neuts (auto) 9.1 H (1.3-6.7) K/mm3 Absolute Nucleated RBC 0.000 (0.0-0.012) K/mm3 Nucleated RBC % 0.0 (0.0-0.2) % PT 13.0 (11.1-14.7) Seconds INR 1.0 APTT 26.8 (22.3-36.8) Seconds Sodium 134 L (137-145) mmol/L Potassium 4.3 (3.4-5.0) mmol/L Chloride 102 (98-107) mmol/L Carbon Dioxide 25 (22-30) mmol/L Anion Gap 7 (4-12) mmol/L BUN 23 H (9-20) mg/dL Creatinine 1.18 (0.7-1.3) mg/dL Estim Creat Clear Calc 52 ml/min Estimated GFR > 60 (59 - ) Glucose 107 (65-110) mg/dL Calcium 9.1 (8.4-10.2) mg/dL Total Bilirubin 0.4 (0.2-1.3) mg/dL AST 34 (17-59) U/L ALT 24 (6-50) U/L Alkaline Phosphatase 86 (38-126) U/L Troponin I < 0.012 (0.000-0.034) ng/mL Total Protein 7.7 (6.3-8.2) g/dL Albumin 4.5 (3.5-5.1) g/dL Lipase 204 (23-300) U/L Imaging Data Attestation: I personally reviewed and interpreted this imaging study as follows: My impression: nad Radiologist's impression: same ECG Data EKG #1: Attestation: I personally reviewed and interpreted this ECG as follows: Interpretation: nsr rate [address] or t wave changes Discharge Plan Discharge Clinical Impression: Atypical chest pain, Anxiety Patient Disposition: Home Condition: Improved Instructions: Antibiotic Form, Anxiety (ED), Chest Wall Pain (ED) Patient Language: Tajik Prescriptions: New lorazepam [Ativan] 1 mg tablet 1 mg PO TID PRN (Reason: anxiety) Qty: 10 0RF No Action varenicline tartrate [Chantix Continuing Month Box] 1 mg tablet 1 mg PO BID Qty: 56 4RF varenicline tartrate [Chantix Starting Month Box] 0.5 mg (11)- 1 mg (42) tablets,dose pack See Rx Instructions PO PER PKG DIR Qty: 53 0RF Rx Instructions: PO PER PKG DIR atorvastatin 20 mg tablet 20 mg PO QHS Qty: 90 2RF dextroamphetamine-amphetamine [Adderall] 20 mg tablet 20 mg PO BID Qty: 60 0RF Rx Instructions: administer doses at least 4-6 hours apart lorazepam 1 mg tablet 1 mg PO TID PRN (Reason: anxiety) Qty: 50 1RF Follow-up/Referrals: [facility], FERNANDO [Primary Care Provider, Family Practice]
[2025-07-22] MEDS: diazePAM INJ (*CRX) 10 MG/2 ML SYRINGE 5 MG IV PUSH (14:31)
[2025-07-22] MEDS: BELLADONNA ALK/PHENOB ELIX 10 ML, MAG HYDROX/ALUMINUM HYD/SIMETH 30 ML, LIDOCAINE 2% VI... PO (14:32)
[2025-07-22 15:24] VITALS: BP 115/70; PULSE 75; RESP 16; O2SAT 96
== END 2025-07-22 15:26 | disposition home or self-care (01) ==
PROVIDERS: Emergency Provider Emergency Medicine; PCP Nurse Practitioner Family
DX: R07.89 Other chest pain (principal); F41.9 Anxiety disorder, unspecified; E78.5 Hyperlipidemia, unspecified; F90.9 Attention-deficit hyperactivity disorder, unspecified type; F17.210 Nicotine dependence, cigarettes, uncomplicated; I44.4 Left anterior fascicular block; R94.31 Abnormal electrocardiogram [ECG] [EKG]
CPT/HCPCS: 36415; 71046; 80053; 83690; 84484; 85025; 85610; 85730; 93005; 96374; 99284; A9270; J3360

== ENCOUNTER → 2025-09-09 12:26 | Outpatient (CLI) | payer OTHER, SELFPAY ==
--- NOTE | ~2025-09-09 | XR_ITS ---
EXAMINATION: XR chest 2V 09/09/2025 12:41 INDICATION: Dyspnea PROCEDURE: 2 view chest COMPARISON: 07/22/2025 FINDINGS: The lungs are clear. The cardiomediastinal silhouette is within normal limits. There are no pleural effusions. There is no pneumothorax suspected. IMPRESSION: 1: NO ACUTE CARDIOPULMONARY DISEASE. Reviewed, dictated and finalized at location O. AI TENDER
== END ==
LOC: EXPCRAD 12:30
PROVIDERS: PCP Nurse Practitioner Family; Visit Provider Nurse Practitioner Family
DX: R06.09 Other forms of dyspnea (principal)
CPT/HCPCS: 71046